=== PATIENT | female | born 1950 | race Asian ===

== ENCOUNTER 2017-02-08 22:31 | Emergency (ER) | payer MEDICARE, OTHER ==
[~2017-02-08 22:31] MED LIST: ASPI325T4 PO; ATEN50TA PO; CIPR500T94 PO; HYDR-2666 PO; LISI10TA2 PO; METR500T4 PO; NEOM10DR10 OU; SIMV40TA3 PO; TRAM50TA PO
[2017-02-08 22:35] VITALS: BP 155/83
[2017-02-08] MEDS ORDERED: PRED50TA PO (22:54)
--- NOTE | 2017-02-08 23:04 | ED.ADGEN ---
Past History Past Medical History: GERD, High Cholesterol, Hypertension, Other Past Surgical History: Hysterectomy, Tonsillectomy Smoking: Non-smoker Alcohol Use: Rarely Drug Use: None Adult General HPI HPI Patient is a 66-year-old female presents emergency Department with hives. Patient got a pair of workout pants at [facility] earlier today. She wore the most the day and then developed a itchy diffuse rash tonight. She had no prehospital intervention. Review of Systems Review of Systems Constitutional: Denies fever or chills [] Eyes: Denies change in visual acuity, redness, or eye pain [] HENT: Denies nasal congestion or sore throat [] Respiratory: Denies cough or shortness of breath [] Cardiovascular: No additional information not addressed in HPI [] GI: Denies abdominal pain, nausea, vomiting, bloody stools or diarrhea [] : Denies dysuria or hematuria [] Musculoskeletal: Denies back pain or joint pain [] Integument: Denies rash or skin lesions [] Neurologic: Denies headache, focal weakness or sensory changes [] Endocrine: Denies polyuria or polydipsia [] Current Medications Current Medications Current Medications Medications (Trade) Dose Ordered Sig/Justin Start Time Stop Time Status Last Admin Dose Admin Dexamethasone Sodium Phosphate (Decadron) 8 mg 1X ONCE 02/08/17 23:15 02/08/17 23:16 DC 02/08/17 23:04 8 MG Diphenhydramine HCl (Benadryl) 50 mg 1X ONCE 02/08/17 23:15 02/08/17 23:16 DC 02/08/17 23:03 50 MG Epinephrine HCl 0.3 mg 1X ONCE 02/08/17 23:15 02/08/17 23:16 DC 02/08/17 23:04 0.3 MG Allergies Allergies Allergies Coded Allergies Type Severity Reaction Last Updated Verified No Known Drug Allergies 06/18/14 No Physical Exam Physical Exam Constitutional: Well developed, well nourished, no acute distress, non-toxic appearance. [] HENT: Normocephalic, atraumatic, bilateral external ears normal, oropharynx moist, no oral exudates, nose normal. [] Eyes: PERRLA, EOMI, conjunctiva normal, no discharge. [] Neck: Normal range of motion, no tenderness, supple, no stridor. [] Cardiovascular:Heart rate regular rhythm, no murmur [] Lungs & Thorax: Bilateral breath sounds clear to auscultation [] Abdomen: Bowel sounds normal, soft, no tenderness, no masses, no pulsatile masses. [] Skin: Warm, dry, diffuse urticaria from the umbilicus down Extremities: No tenderness, no cyanosis, no clubbing, ROM intact, no edema. [] Neurologic: Alert and oriented X 3, normal motor function, normal sensory function, no focal deficits noted. [] Psychologic: Affect normal, judgement normal, mood normal. [] EKG EKG [] Radiology/Procedures Radiology/Procedures [] Course & Med Decision Making Course & Med Decision Making Pertinent Labs and Imaging studies reviewed. (See chart for details) Decadron and Benadryl here in emergency department. Rx for prednisone. [] Final Impression Final Impression urticaria[] Problems: Dragon Disclaimer Dragon Disclaimer This electronic medical record was generated, in whole or in part, using a voice recognition dictation system. RONDA MELGOZA MD Feb 08, 2017 23:04
[2017-02-08] MEDS ORDERED: DEXAMETHASONE SOD PHOS 4 MG/ML VIAL IM ONE (23:15)
[2017-02-08] MEDS ORDERED: DIPHENHYDRAMINE HCL 25 MG CAPSULE PO ONE (23:15)
[2017-02-08] MEDS ORDERED: EPINEPHRINE 1 MG/ML IM ONE (23:15)
[2017-02-09] MEDS ORDERED: RANI150T2 PO (22:55)
[2017-02-09] MEDS ORDERED: HYDR25CA PO (22:55)
== END 2017-02-08 23:15 | disposition home or self-care (01) ==
LOC: ER 22:33
DX: L50.9 Urticaria, unspecified (principal); E78.00 Pure hypercholesterolemia, unspecified; I10 Essential (primary) hypertension; K21.9 Gastro-esophageal reflux disease without esophagitis
CPT/HCPCS: 96372; 99284; J0171; J1100; Q0163

== ENCOUNTER 2017-02-09 22:09 | Emergency (ER) | payer MEDICARE, OTHER ==
[~2017-02-09 22:09] MED LIST changes: +PRED50TA PO
--- NOTE | 2017-02-09 22:44 | PHYS DOC ---
Past History Past Medical History: High Cholesterol, Hypertension Past Surgical History: Other Smoking: Non-smoker Alcohol Use: None Drug Use: None Adult General Chief Complaint Chief Complaint: SKIN RASH/ABSCESS HPI HPI 66-year-old female returns to the emergency department tonight with worsening hives. She was seen in our emergency department last night given Benadryl steroids and epinephrine and had significant improvement. She took prednisone 50 mg today but did not take any antihistamines and the hives returned. She states the itching and burning is too much to take and she needed relief so she returned to the emergency department tonight. [] Review of Systems Review of Systems Constitutional: Denies fever or chills [] Eyes: Denies change in visual acuity, redness, or eye pain [] HENT: Denies nasal congestion or sore throat [] Respiratory: Denies cough or shortness of breath [] Cardiovascular: No additional information not addressed in HPI [] GI: Denies abdominal pain, nausea, vomiting, bloody stools or diarrhea [] : Denies dysuria or hematuria [] Musculoskeletal: Denies back pain or joint pain [] Integument: Per history of present illness [] Neurologic: Denies headache, focal weakness or sensory changes [] Endocrine: Denies polyuria or polydipsia [] Current Medications Current Medications Current Medications Medications (Trade) Dose Ordered Sig/Justin Start Time Stop Time Status Last Admin Dose Admin Alprazolam (Xanax) 0.5 mg 1X ONCE 02/09/17 22:45 02/09/17 22:46 UNV Diphenhydramine HCl (Benadryl) 25 mg 1X ONCE 02/09/17 22:45 02/09/17 22:46 UNV Famotidine (Pepcid) 40 mg 1X ONCE 02/09/17 22:45 02/09/17 22:46 UNV Methylprednisolone Sodium Succinate (Solu-Medrol 125mg Vial) 125 mg 1X ONCE 02/09/17 22:45 02/09/17 22:46 UNV Sodium Chloride (Iv Sodium Chloride 0.9% 1,000ml) 1,000 ml @ 1,000 mls/hr 1X ONCE 02/09/17 22:45 02/09/17 23:44 UNV Allergies Allergies Allergies Coded Allergies Type Severity Reaction Last Updated Verified No Known Drug Allergies 06/18/14 No Physical Exam Physical Exam Constitutional: Well developed, well nourished, no acute distress, non-toxic appearance. [] HENT: Normocephalic, atraumatic, bilateral external ears normal, oropharynx moist, no oral exudates, nose normal. [] Eyes: PERRLA, EOMI, conjunctiva normal, no discharge. [] Neck: Normal range of motion, no tenderness, supple, no stridor. [] Cardiovascular:Heart rate regular rhythm, no murmur [] Lungs & Thorax: Bilateral breath sounds clear to auscultation [] Abdomen: Bowel sounds normal, soft, no tenderness, no masses, no pulsatile masses. [] Skin: Scattered hives most pronounced on her upper chest shoulders and right cheek.. [] Back: No tenderness, no CVA tenderness. [] Extremities: No tenderness, no cyanosis, no clubbing, ROM intact, no edema. [] Neurologic: Alert and oriented X 3, normal motor function, normal sensory function, no focal deficits noted. [] Psychologic: Affect normal, judgement normal, mood normal. [] Current Patient Data Vital Signs Vital Signs Date Time Temp Pulse Resp B/P Pulse Ox O2 Delivery O2 Flow Rate FiO2 02/09/17 22:22 97.6 76 22 98 Room Air EKG EKG [] Radiology/Procedures Radiology/Procedures [] Course & Med Decision Making Course & Med Decision Making Pertinent Labs and Imaging studies reviewed. (See chart for details) [ED course: Evaluation reveals a 66-year-old female with hives. She was given IV fluids, Solu-Medrol, Benadryl 25 mg and Pepcid 20 mg with near complete resolution of her symptoms. I will prescribe Vistaril and Zantac for her to take at home along with the previously prescribed prednisone. Patient is stable for discharge home] Dragon Disclaimer Dragon Disclaimer This chart was dictated in whole or in part using Voice Recognition software in a busy, high-work load, and often noisy Emergency Department environment. It may contain unintended and wholly unrecognized errors or omissions. Departure Departure: Impression: Primary Impression: Hives Disposition: HOME, SELF-CARE Condition: IMPROVED Referrals: JOEL CAGE MD (PCP) Patient Instructions: Hives Additional Instructions: Take Vistaril every 6-8 hours as needed for hives. I've also prescribed Zantac for you to take every 12 hours for hives. I also recommend that she continue the prednisone which were prescribed yesterday. Return to the emergency department with any new or concerning symptoms Scripts Hydroxyzine Pamoate (Vistaril)25 Mg Capsule1 Cap PO Q8HRS PRN hives #30 CAP Ref 2 Prov:HILARIO PORTER DO 02/09/17 Ranitidine Hcl 150 Mg Tablet1 Tab PO BID hives #30 TAB Ref 3 Prov:HILARIO PORTER DO 02/09/17 HILARIO PORTER DO Feb 09, 2017 22:44
[2017-02-09] MEDS ORDERED: ALPRAZOLAM 0.25 MG TABLET ONE (22:45)
[2017-02-09] MEDS ORDERED: IV NORMAL SALINE 1,000ML 1,000 ML IV ONE (22:45)
[2017-02-09] MEDS ORDERED: HYDR25CA PO (22:55)
[2017-02-09] MEDS ORDERED: RANI150T2 PO (22:55)
[2017-02-09] MEDS ORDERED: methylPREDNISolone SOD SUCC PF 125 MG/2 ML VIAL. IV ONE (23:00)
[2017-02-09] MEDS ORDERED: DIPHENHYDRAMINE 50 MG/ML VIAL IVP ONE (23:00)
[2017-02-09] MEDS ORDERED: FAMOTIDINE 20 MG/2 ML VIAL IVP ONE (23:00)
[2017-02-09] MEDS ORDERED: ALPRAZOLAM 0.25 MG TABLET PO ONE (23:00)
[2017-02-09 23:40] VITALS: BP 144/83
== END 2017-02-09 23:40 | disposition home or self-care (01) ==
LOC: ER 22:09
DX: L50.9 Urticaria, unspecified (principal); I10 Essential (primary) hypertension; E78.00 Pure hypercholesterolemia, unspecified
CPT/HCPCS: 96361; 96374; 96375; 99284; J1200; J2930; S0028; J7030

== ENCOUNTER → 2017-04-12 | Outpatient (CLI) | payer MEDICARE, OTHER ==
[~2017-04-12] MED LIST changes: -ASPI325T4 PO; +ASPI325T8 PO; -HYDR-2666 PO; +HYDR-2758 PO; +HYDR25CA PO; -METR500T4 PO; +METR500T8 PO; +RANI150T2 PO
--- NOTE | 2017-04-12 14:07 | RAD ---
Indication chronic pelvic pain. Initially transabdominal scans were obtained. Initial transabdominal scans were supplemented with transvaginal scans. The transvaginal scans however suboptimal. The patient is postmenopausal. The uterus measures approximately 6.3 x 3.7 x 2.3 cm. Endometrial thickness is approximately 5 mm. The right ovary is not seen and reportedly is surgically absent. The left ovary appears unremarkable. IMPRESSION: No significant finding seen involving the uterus or left ovary.
== END | disposition home or self-care (01) ==
LOC: US 12:37
PROVIDERS: ATTEND Family Medicine
DX: R10.2 Pelvic and perineal pain (principal)
CPT/HCPCS: 76830; 76856

== ENCOUNTER 2017-11-23 06:56 | Emergency (ER) | payer MEDICARE, OTHER ==
[2017-11-23] MEDS ORDERED: IV NORMAL SALINE 1,000ML 1,000 ML IV SCH (07:37)
--- NOTE | 2017-11-23 07:46 | PHYS DOC ---
Past History Past Medical History: High Cholesterol, Hypertension Past Surgical History: Other Smoking: Non-smoker Alcohol Use: None Drug Use: None Adult General Chief Complaint Chief Complaint: COUGH HPI HPI 67-year-old female patient complaining of nasal congestion and cough for the last 5 days of gradually getting force. Patient states she has dry cough and sometimes she has productive cough with clear sputum associated with chest soreness and shortness of breath during episodes of cough. Patient complaining of mild nausea and subjective fever since last night without vomiting and diarrhea and urinary symptom. Patient did not have sick contact. Patient had influenza vaccination. Review of Systems Review of Systems Constitutional: Reports fever and chills [] Eyes: Denies change in visual acuity, redness, or eye pain [] HENT: Reports nasal congestion, sore throat [] Respiratory: Denies cough or shortness of breath [] Cardiovascular: No additional information not addressed in HPI [] GI: Denies abdominal pain, nausea, vomiting, bloody stools or diarrhea [] : Denies dysuria or hematuria [] Musculoskeletal: Denies back pain or joint pain, reports myalgia[] Integument: Denies rash or skin lesions [] Neurologic: Denies headache, focal weakness or sensory changes [] Endocrine: Denies polyuria or polydipsia [] All other systems were reviewed and found to be within normal limits, except as documented in this note. Allergies Allergies Allergies Coded Allergies Type Severity Reaction Last Updated Verified No Known Drug Allergies 06/18/14 No Physical Exam Physical Exam Constitutional: Well developed, well nourished, moderate distress, non-toxic appearance. [] HENT: Normocephalic, atraumatic, bilateral external ears normal, oropharynx moist, tonsillar erythema without no exudates, nasal congestion and erythema Eyes: PERRLA, EOMI, conjunctiva normal, no discharge. [] Neck: Normal range of motion, no tenderness, supple, no stridor. [] Cardiovascular:Heart rate regular rhythm, no murmur [] Lungs & Thorax: Bilateral breath sounds clear to auscultation [] Abdomen: Bowel sounds normal, soft, no tenderness, no masses, no pulsatile masses. [] Skin: Warm, dry, no erythema, no rash. [] Back: No tenderness, no CVA tenderness. [] Extremities: No tenderness, no cyanosis, no clubbing, ROM intact, no edema. [] Neurologic: Alert and oriented X 3, normal motor function, normal sensory function, no focal deficits noted. [] Psychologic: Affect normal, judgement normal, mood normal. [] Current Patient Data Vital Signs Vital Signs Date Time Temp Pulse Resp B/P (MAP) Pulse Ox O2 Delivery O2 Flow Rate FiO2 11/23/17 07:23 98.7 95 22 93 Room Air EKG EKG [] Radiology/Procedures Radiology/Procedures [] Course & Med Decision Making Course & Med Decision Making Pertinent Labs and Imaging studies reviewed. (See chart for details) Evaluation of patient in ER showed 67-year-old male patient with complaining of nasal congestion and cough and shortness of breath for the last 5 days with negative labs and chest x-ray. Patient treated with IV fluid, Solu-Medrol, Toradol, Rocephin and DuoNeb and felt better. Plan discharge patient home with diagnosis of upper respiratory infection and prescription of Zithromax and Tussionex. [] Dragon Disclaimer Dragon Disclaimer This electronic medical record was generated, in whole or in part, using a voice recognition dictation system. Departure Departure: Impression: Primary Impression: Upper respiratory infection Disposition: HOME, SELF-CARE (At 0900) Condition: IMPROVED Referrals: JOAN PICHARDO MD (PCP) Patient Instructions: Upper Respiratory Infection, Adult Additional Instructions: Take plenty of liquids Follow-up with your primary care physician in 3-5 days Return to ER if not getting better Scripts Hydrocodone/Chlorphen P-Stirex (Tussionex Pennkinetic Susp) 115 Ml Nasreen.er.12h 5 ML PO BID, #120 ML Prov: LALY GARCIA MD 11/23/17 Azithromycin (ZITHROMAX) 250 Mg Tablet 1 PKG PO UD, #6 TAB Prov: LALY GARCIA MD 11/23/17 LALY GARCIA MD Nov 23, 2017 07:46
[2017-11-23] MEDS ORDERED: IPRATRPIUM/ALBUTEROL 0.5/2.5MG 3 ML NEBU. NEB ONE (08:00)
[2017-11-23] MEDS ORDERED: methylPREDNISolone SOD SUCC PF 125 MG/2 ML VIAL. IV ONE (08:00)
[2017-11-23] MEDS ORDERED: KETOROLAC 30 MG/ML VIAL. IV ONE (08:00)
[2017-11-23 08:09] LABS: BASO # 0.1 x10^3/uL (0.0-0.2); BASO % 1 % (0-3); EOS # 0.1 x10^3/uL (0.0-0.7); EOS % 1 % (0-3); HEMOGLOBIN 13.6 g/dL (12.0-15.5); LYMPH # 1.2 x10^3/uL (1.0-4.8); LYMPH % 12 % (24-48); MEAN CORPUSCULAR HEMOGLOBIN 33 pg (25-35); MEAN CORPUSCULAR HGB CONC 35 g/dL (31-37); MEAN CORPUSCULAR VOLUME 94 fL (79-100); MONO # 0.8 x10^3/uL (0.0-1.1); MONO % 8 % (0-9); NEUT # 8.2 x10^3uL (1.8-7.7); NEUT % 79 % (31-73); PLATELET COUNT 222 x10^3/uL (140-400); RED BLOOD COUNT 4.15 x10^6/uL (3.50-5.40); RED CELL DISTRIBUTION WIDTH 13.1 % (11.5-14.5); WHITE BLOOD COUNT 10.4 x10^3/uL (4.0-11.0)
--- NOTE | 2017-11-23 08:15 | RAD ---
Chest, 2 views, 11/23/2017: History: Cough and congestion Comparison is made to a study from 03/01/2016. The heart size and pulmonary vascularity are normal. There is mild tortuosity of the thoracic aorta. No pulmonary infiltrates are seen. There is no evidence of pleural fluid. IMPRESSION: No acute cardiopulmonary abnormality is detected.
[2017-11-23 08:22] LABS: ALBUMIN 3.5 g/dL (3.4-5.0); ALBUMIN/GLOBULIN RATIO 0.8 (1.0-1.7); CALCIUM 8.6 mg/dL (8.5-10.1); CREATININE 0.8 mg/dL (0.6-1.0); TOTAL PROTEIN 7.7 g/dL (6.4-8.2)
[2017-11-23 08:23] LABS: GFR 71.3; POTASSIUM 3.7 mmol/L (3.5-5.1); TOTAL BILIRUBIN 0.8 mg/dL (0.2-1.0)
[2017-11-23 08:23] LABS: INFLUENZA A PATIENT NEGATIVE (NEGATIVE); INFLUENZA B PATIENT NEGATIVE (NEGATIVE)
[2017-11-23] MEDS ORDERED: cefTRIAXone IV Push 1 GM VIAL. IVP SCH (09:00)
[2017-11-23] MEDS ORDERED: AZIT250T PO (09:03)
[2017-11-23] MEDS ORDERED: HYDR115S2 PO (09:03)
[2017-11-23 12:36] VITALS: BP 138/84
== END 2017-11-23 09:50 | disposition home or self-care (01) ==
LOC: ER 06:56
DX: J06.9 Acute upper respiratory infection, unspecified (principal); I10 Essential (primary) hypertension; E78.00 Pure hypercholesterolemia, unspecified
CPT/HCPCS: 36415; 71046; 80053; 83605; 85025; 87804; 94640; 96361; 96374; 96375; 99285; J0696; J1885; J2930; J7620; J7030

== ENCOUNTER 2018-05-28 20:05 | Inpatient (IN) | payer MEDICARE, OTHER ==
[~2018-05-28] VITALS: Ht 152.4 cm; Wt 57.7 kg
[~2018-05-28 20:05] MED LIST changes: +AZIT250T PO; +HYDR115S2 PO
--- NOTE | 2018-05-28 20:20 | ED.ADGEN ---
Past History Past Medical History: Angina, High Cholesterol, Hypertension, Other Past Surgical History: Other Smoking: Non-smoker Alcohol Use: None Drug Use: None Adult General Chief Complaint Chief Complaint ".. I always have this heavy ness in my chest after eating... and been sweating..." ".. I cant seem to catch my breath..." ".. I just feel uncomfortable.. I was to see my Dr. Segura tomorrow..." HPI HPI Patient is a 67 year old female who presents with above hx and complaints of dyspnea and chest pressure. Pt. had symptoms for past 3 yrs interment. More constant today, no relief. Constant heaviness in chest today. Pt. complaints of dyspnea and fatigue after eating. Chest heavy after eating. Pt. reports normal stools. H2 kevin have not helped with symptoms. P.t denies travel or ill contacts. No hx of trauma. No changes in meds. Pt. has hx of TIA's, and was started on ASA years ago. Pt. has hx HTN, Eleve. Cholesterol. Pt. follows with Dr. Segura. Review of Systems Review of Systems Constitutional: Denies fever or chills [] Eyes: Denies change in visual acuity, redness, or eye pain [] HENT: Denies nasal congestion or sore throat [] Respiratory: Complaints of shortness of breath [] Cardiovascular: No additional information not addressed in HPI [] GI: Denies abdominal pain, nausea, vomiting, bloody stools or diarrhea [] : Denies dysuria or hematuria [] Musculoskeletal: Denies back pain or joint pain [] Integument: Denies rash or skin lesions [] Neurologic: Denies headache, focal weakness or sensory changes [] Endocrine: Denies polyuria or polydipsia [] All other systems were reviewed and found to be within normal limits, except as documented in this note. Family History Family History Noncontributory Current Medications Current Medications See nursing for home medications Allergies Allergies Allergies Coded Allergies Type Severity Reaction Last Updated Verified No Known Drug Allergies 06/18/14 No Physical Exam Physical Exam Constitutional: Moderate distress, non-toxic appearance. [] HENT: Normocephalic, atraumatic, bilateral external ears normal, oropharynx moist, no oral exudates, nose normal. [] Eyes: PERRLA, EOMI, conjunctiva normal, no discharge. [] Neck: Normal range of motion, no tenderness, supple, no stridor. [] Cardiovascular:Heart rate regular rhythm, no murmur []PMI to the left Lungs & Thorax: Bilateral breath sounds equal at apex on auscultation [] Abdomen: Bowel sounds normal, soft, no tenderness, no masses, no pulsatile masses. [Distended Skin: Warm, dry, no erythema, no rash. [] Back: No tenderness, no CVA tenderness. [] Extremities: No tenderness, no cyanosis, no clubbing, ROM intact, no edema. No cording appreciated in legs . Neurologic: Alert and oriented X 3, normal motor function, normal sensory function, no focal deficits noted. [] Psychologic: Affect anxious, judgement normal, mood normal. [] Current Patient Data Vital Signs Vital Signs Date Time Temp Pulse Resp B/P (MAP) Pulse Ox O2 Delivery O2 Flow Rate FiO2 05/28/18 20:20 97.7 78 20 99 Room Air Lab Results Laboratory Tests Test 05/28/18 20:21 White Blood Count 8.3 x10^3/uL (4.0-11.0) Red Blood Count 4.11 x10^6/uL (3.50-5.40) Hemoglobin 13.4 g/dL (12.0-15.5) Hematocrit 38.8 % (36.0-47.0) Mean Corpuscular Volume 95 fL (79-100) Mean Corpuscular Hemoglobin 33 pg (25-35) Mean Corpuscular Hemoglobin Concent 35 g/dL (31-37) Red Cell Distribution Width 13.1 % (11.5-14.5) Platelet Count 322 x10^3/uL (140-400) Neutrophils (%) (Auto) 48 % (31-73) Lymphocytes (%) (Auto) 42 % (24-48) Monocytes (%) (Auto) 6 % (0-9) Eosinophils (%) (Auto) 2 % (0-3) Basophils (%) (Auto) 1 % (0-3) Neutrophils # (Auto) 4.0 x10^3uL (1.8-7.7) Lymphocytes # (Auto) 3.5 x10^3/uL (1.0-4.8) Monocytes # (Auto) 0.5 x10^3/uL (0.0-1.1) Eosinophils # (Auto) 0.1 x10^3/uL (0.0-0.7) Basophils # (Auto) 0.1 x10^3/uL (0.0-0.2) Sodium Level 141 mmol/L (136-145) Potassium Level 4.5 mmol/L (3.5-5.1) Chloride Level 105 mmol/L (98-107) Carbon Dioxide Level 28 mmol/L (21-32) Anion Gap 8 (6-14) Blood Urea Nitrogen 19 mg/dL (7-20) Creatinine 0.6 mg/dL (0.6-1.0) Estimated GFR (Cockcroft-Gault) 99.4 Glucose Level 111 mg/dL (70-99) H Calcium Level 9.1 mg/dL (8.5-10.1) Magnesium Level 2.2 mg/dL (1.8-2.4) Total Bilirubin 0.8 mg/dL (0.2-1.0) Direct Bilirubin 0.1 mg/dL (0.0-0.2) Aspartate Amino Transferase (AST) 32 U/L (15-37) Alanine Aminotransferase (ALT) 29 U/L (14-59) Alkaline Phosphatase 54 U/L (46-116) Creatine Kinase 105 U/L (26-192) Creatine Kinase MB (Mass) 0.9 ng/mL (0.0-3.6) Creatine Kinase MB Relative Index 0.9 % (0-4) Troponin I Quantitative < 0.017 ng/mL (0-0.055) PP-Pvp-P-Type Natriuretic Peptide 31 pg/mL (0-124) Total Protein 7.7 g/dL (6.4-8.2) Albumin 3.8 g/dL (3.4-5.0) Lipase 254 U/L (73-393) EKG EKG Interpretation EKG shows a sinus rhythm at 64 bpm. There is mild leftward axis. There are no findings acute STEMI with contralateral changes. A Q signal and lead III[] Radiology/Procedures Radiology/Procedures My interpretation of chest x-ray shows no acute cardiopulmonary findings. Does have increased stool in colon. No free air under the diaphragm.[] Course & Med Decision Making Course & Med Decision Making Pertinent Labs and Imaging studies reviewed. (See chart for details) Discussed presentation, testing and tx. plan Abdifatah. Will admit for further eval and tx. Cardiology consult. [] Final Impression Final Impression 1. Chest Pain[] 2. HTN 3. Hx. Elevated Cholesterol 4. Constipation Dragon Disclaimer Dragon Disclaimer This electronic medical record was generated, in whole or in part, using a voice recognition dictation system. ADAMA ARRIOLA MD May 28, 2018 20:20
[2018-05-28 20:37] LABS: BASO # 0.1 x10^3/uL (0.0-0.2); BASO % 1 % (0-3); EOS # 0.1 x10^3/uL (0.0-0.7); EOS % 2 % (0-3); HEMATOCRIT 38.8 % (36.0-47.0); HEMOGLOBIN 13.4 g/dL (12.0-15.5); LYMPH # 3.5 x10^3/uL (1.0-4.8); LYMPH % 42 % (24-48); MEAN CORPUSCULAR HEMOGLOBIN 33 pg (25-35); MEAN CORPUSCULAR HGB CONC 35 g/dL (31-37); MEAN CORPUSCULAR VOLUME 95 fL (79-100); MONO # 0.5 x10^3/uL (0.0-1.1); MONO % 6 % (0-9); NEUT % 48 % (31-73); PLATELET COUNT 322 x10^3/uL (140-400); RED BLOOD COUNT 4.11 x10^6/uL (3.50-5.40); RED CELL DISTRIBUTION WIDTH 13.1 % (11.5-14.5); WHITE BLOOD COUNT 8.3 x10^3/uL (4.0-11.0)
[2018-05-28] MEDS: IV RINGERS SOLUTION,LACTATED 1,000 ML IV SCH ×2 (20:50→23:47)
[2018-05-28 21:00] LABS: ALBUMIN 3.8 g/dL (3.4-5.0); CALCIUM 9.1 mg/dL (8.5-10.1); CREATININE 0.6 mg/dL (0.6-1.0); DIRECT BILIRUBIN 0.1 mg/dL (0.0-0.2); GFR 99.4; MAGNESIUM 2.2 mg/dL (1.8-2.4); POTASSIUM 4.5 mmol/L (3.5-5.1); TOTAL BILIRUBIN 0.8 mg/dL (0.2-1.0); TOTAL PROTEIN 7.7 g/dL (6.4-8.2)
[2018-05-28] MEDS ORDERED: MAGNESIUM HYDROXIDE 2,400 MG/30 ML ORAL.SUSP. PO SCH (21:00)
[2018-05-28] MEDS ORDERED: ENOXAPARIN ** NOTE DOSE ** SYRINGE SQ ONE (21:00)
[2018-05-28] MEDS ORDERED: NITROGLYCERIN OINT 1 GM PACKET. TP ONE (21:00)
[2018-05-28 22:08] LABS: BARBITURATES NEG (NEG); BENZODIAZEPINES NEG (NEG); BILIRUBIN,URINE NEG (NEG); CANNABINOIDS NEG (NEG); CLARITY,URINE CLEAR; COCAINE NEG (NEG); COLOR,URINE STRAW; GLUCOSE,URINE NEG (NEG); METHADONE NEG (NEG); NITRITE,URINE NEG (NEG); OPIATES NEG (NEG); PHENCYCLIDINE NEG (NEG); RBC,URINE 0 /HPF (0-2); UROBILINOGEN,URINE 0.2 mg/dL (0.2 mg/dL)
[2018-05-28 22:09] LABS: BACTERIA,URINE FEW /HPF (0-FEW); SQUAMOUS EPITHELIAL CELL,UR FEW /LPF
[2018-05-28 22:11] LABS: AMPHETAMINE/METHAMPHETAMINE NEG (NEG)
--- NOTE | 2018-05-28 22:35 | RAD ---
CHEST PA LATERAL History: Dizziness, shortness of breath, chest pain Comparison: November 23, 2017 Findings: 2 views of the chest are submitted. There is no infiltrate, pneumothorax, or effusion. Cardiac silhouette is stable, within normal limits. There is again tortuous, possibly ectatic thoracic aorta. Impression: 1. There is no radiographic evidence of acute cardiopulmonary disease. Electronically signed by: Flex Regalado MD (05/28/2018 10:32 PM) [id number]
[2018-05-28 22:48] VITALS: BP 141/71
--- NOTE | 2018-05-28 23:33 | EKG ---
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
[2018-05-29 06:00] VITALS: BP 115/63
[2018-05-29 06:22] LABS: BASO % 1 % (0-3); EOS # 0.2 x10^3/uL (0.0-0.7); EOS % 2 % (0-3); HEMATOCRIT 35.2 % (36.0-47.0); HEMOGLOBIN 12.2 g/dL (12.0-15.5); LYMPH # 3.4 x10^3/uL (1.0-4.8); LYMPH % 46 % (24-48); MEAN CORPUSCULAR HEMOGLOBIN 33 pg (25-35); MEAN CORPUSCULAR HGB CONC 35 g/dL (31-37); MEAN CORPUSCULAR VOLUME 95 fL (79-100); MONO # 0.5 x10^3/uL (0.0-1.1); MONO % 7 % (0-9); NEUT # 3.2 x10^3uL (1.8-7.7); NEUT % 44 % (31-73); PLATELET COUNT 277 x10^3/uL (140-400); RED BLOOD COUNT 3.71 x10^6/uL (3.50-5.40); RED CELL DISTRIBUTION WIDTH 12.6 % (11.5-14.5); WHITE BLOOD COUNT 7.4 x10^3/uL (4.0-11.0)
[2018-05-29 06:30] LABS: CALCIUM 8.5 mg/dL (8.5-10.1); CREATININE 0.6 mg/dL (0.6-1.0); GFR 99.4; POTASSIUM 3.8 mmol/L (3.5-5.1)
[2018-05-29] MEDS ORDERED: LISINOPRIL 10 MG TABLET PO SCH (09:00)
[2018-05-29] MEDS ORDERED: FAMOTIDINE 20 MG TABLET PO SCH (09:00)
[2018-05-29] MEDS ORDERED: ATENOLOL 50 MG TABLET PO SCH (09:00)
[2018-05-29] MEDS ORDERED: ASPIRIN 81 MG TAB.CHEW PO SCH (09:00)
[2018-05-29] MEDS ORDERED: ENOXAPARIN ** NOTE DOSE ** SYRINGE SQ SCH (09:00)
--- NOTE | 2018-05-29 09:10 | PDOC2 ---
CONSULT Date of Admission DATE: 05/29/18 TIME: 09:07 Reason for Consult: cp Problem List Problems Medical Problems: (1) Constipation Status: Acute (2) Dyspnea Status: Acute (3) History of hypertension Status: Acute History of Present Illness Ms Madrigal is a 67 year old female who presents with complaints of chest pressure. She reports constant pressure in her epigastric area radiating to midsternal area that is non exertional. She reports some mild dyspnea that is also constant. She complains of increased symptoms after eating. She reports that yesterday it was significantly worse than normal so she presented to ED for evaluation. She says that nothing seems to improve the discomfort. She does walk treadmill 3 days per week at the gym and denies any increase of symptoms with exercise. She reports that she actually feels great after exercise. She denies any congestive symptoms, edema. She reports palpitations occasionally without associated symptoms. She reports 3 episodes of syncope, last being 1.5 yrs ago, twice while on the toilet and 1 episode associated with leg pain while walking down the stairs. 2 episodes resulted in injury, 1 with fall down stairs and one with fall from toilet resulting in cervical fracture. Past Medical History echo 09/28/16 The left ventricular systolic function is normal and the ejection fraction is within normal range. The Ejection Fraction is 55-60%. There is normal LV segmental wall motion. No significant valvular disease. MPI 03/03/16 Conclusion 1. Regadenoson cardioisotope stress test did not show any evidence of ischemia or infarct. 2. Normal left ventricular systolic function with ejection fraction calculated at 70%. 3. Low risk for cardiac events. Cardiovascular: HTN, syncope, hyperipidemia GI: GERD, Peptic Ulcer disease Musculoskeletal: Other (c2 fracture) Endocrine: Hypothyroidism Past Surgical History: Other (right oophorectomy , breast implants) Family History hypertension, coronary artery disease Social History non smoker, no significant ETOH, no illicit drugs Current Medications Current Medications Lactated Ringer's 1,000 ml @ 100 mls/hr Q10H IV Last administered on 05/28/18at 23:47; Start 05/28/18 at 21:00; Stop 05/29/18 at 06:59; Status DC Enoxaparin Sodium (Lovenox 60mg Syringe) 50 mg 1X ONCE SQ Last administered on 7/8/18at 20:50; Start 05/28/18 at 21:00; Stop 05/28/18 at 21:01; Status DC Nitroglycerin (Nitro-Bid Oint) 0.5 inch 1X ONCE TP Last administered on at 20:51; Start 05/28/18 at 21:00; Stop 05/28/18 at 21:01; Status DC Aspirin (Children'S Aspirin) 81 mg DAILY PO ; Start 05/29/18 at 09:00 Enoxaparin Sodium (Lovenox 60mg Syringe) 50 mg BID SQ ; Start 05/29/18 at 09:00 Nitroglycerin (Nitro-Bid Oint) 0.5 inch TID TP ; Start 05/29/18 at 09:00 Magnesium Hydroxide (Milk Of Magnesia) 2,400 mg HS PO Last administered on at 23:47; Start 05/28/18 at 21:00 Famotidine (Pepcid) 20 mg DAILY PO ; Start 05/29/18 at 09:00 Active Scripts Active Tussionex Pennkinetic Susp (Hydrocodone/Chlorphen P-Stirex) 115 Ml Nasreen.er.12h 5 Ml PO BID Zithromax (Azithromycin) 250 Mg Tablet 1 Pkg PO UD Vistaril (Hydroxyzine Pamoate) 25 Mg Capsule 1 Cap PO Q8HRS PRN Ranitidine Hcl 150 Mg Tablet 1 Tab PO BID Prednisone 50 Mg Tablet 1 Tab PO DAILY Tramadol Hcl (Tramadol HCl) 50 Mg Tablet 50 Mg PO Q4-6HRS PRN Reported Lisinopril 10 Mg Tablet 10 Mg PO DAILY LAST DOSE GIVEN: DATE: NEXT DOSE DUE: DATE: TOMORR AM Aspirin 325 Mg Tablet 325 Mg PO DAILY LAST DOSE GIVEN: DATE: AM NEXT DOSE DUE: DATE: Tomorr morning TIME: Simvastatin 40 Mg Tablet 40 Mg PO HS NEXT DOSE DUE: DATE: TON PM DATE: TIME: Atenolol 50 Mg Tablet 50 Mg PO DAILY LAST DOSE GIVEN: DATE: NEXT DOSE: DATE: Tomorrow AFTER STRESS TEST HOLD IN MORNING!!! Allergies: Coded Allergies: No Known Drug Allergies (Unverified , 06/18/14) Review of System as per HPI or negative General: Alert, Oriented X3, Cooperative, No acute distress HEENT: Atraumatic, EOMI, Mucous membr. moist/pink, Other (no carotid bruits) Lungs: Other (mildly decreased in bases) Heart: Regular rate, Normal S1, Normal S2, Other (no significant murmurs, clicks or rubs) Abdomen: Normal bowel sounds, Soft, No tenderness Extremities: No cyanosis, No edema, Normal pulses Neuro: Normal speech, Strength at 5/5 X4 ext, Cranial nerves 3-12 NL Psych/Mental Status: Mental status NL, Mood NL VITALS Vital Signs Date Time Temp Pulse Resp B/P (MAP) Pulse Ox O2 Delivery O2 Flow Rate FiO2 05/29/18 06:00 97.9 73 18 115/63 (80) 97 Room Air Labs Laboratory Tests Test 05/28/18 20:21 05/28/18 21:00 05/28/18 21:47 05/29/18 06:07 White Blood Count 8.3 x10^3/uL (4.0-11.0) 7.4 x10^3/uL (4.0-11.0) Red Blood Count 4.11 x10^6/uL (3.50-5.40) 3.71 x10^6/uL (3.50-5.40) Hemoglobin 13.4 g/dL (12.0-15.5) 12.2 g/dL (12.0-15.5) Hematocrit 38.8 % (36.0-47.0) 35.2 % (36.0-47.0) Mean Corpuscular Volume 95 fL (79-100) 95 fL (79-100) Mean Corpuscular Hemoglobin 33 pg (25-35) 33 pg (25-35) Mean Corpuscular Hemoglobin Concent 35 g/dL (31-37) 35 g/dL (31-37) Red Cell Distribution Width 13.1 % (11.5-14.5) 12.6 % (11.5-14.5) Platelet Count 322 x10^3/uL (140-400) 277 x10^3/uL (140-400) Neutrophils (%) (Auto) 48 % (31-73) 44 % (31-73) Lymphocytes (%) (Auto) 42 % (24-48) 46 % (24-48) Monocytes (%) (Auto) 6 % (0-9) 7 % (0-9) Eosinophils (%) (Auto) 2 % (0-3) 2 % (0-3) Basophils (%) (Auto) 1 % (0-3) 1 % (0-3) Neutrophils # (Auto) 4.0 x10^3uL (1.8-7.7) 3.2 x10^3uL (1.8-7.7) Lymphocytes # (Auto) 3.5 x10^3/uL (1.0-4.8) 3.4 x10^3/uL (1.0-4.8) Monocytes # (Auto) 0.5 x10^3/uL (0.0-1.1) 0.5 x10^3/uL (0.0-1.1) Eosinophils # (Auto) 0.1 x10^3/uL (0.0-0.7) 0.2 x10^3/uL (0.0-0.7) Basophils # (Auto) 0.1 x10^3/uL (0.0-0.2) 0.0 x10^3/uL (0.0-0.2) Sodium Level 141 mmol/L (136-145) 142 mmol/L (136-145) Potassium Level 4.5 mmol/L (3.5-5.1) 3.8 mmol/L (3.5-5.1) Chloride Level 105 mmol/L (98-107) 108 mmol/L (98-107) Carbon Dioxide Level 28 mmol/L (21-32) 28 mmol/L (21-32) Anion Gap 8 (6-14) 6 (6-14) Blood Urea Nitrogen 19 mg/dL (7-20) 23 mg/dL (7-20) Creatinine 0.6 mg/dL (0.6-1.0) 0.6 mg/dL (0.6-1.0) Estimated GFR (Cockcroft-Gault) 99.4 99.4 Glucose Level 111 mg/dL (70-99) 119 mg/dL (70-99) Calcium Level 9.1 mg/dL (8.5-10.1) 8.5 mg/dL (8.5-10.1) Magnesium Level 2.2 mg/dL (1.8-2.4) Total Bilirubin 0.8 mg/dL (0.2-1.0) Direct Bilirubin 0.1 mg/dL (0.0-0.2) Aspartate Amino Transf (AST/SGOT) 32 U/L (15-37) Alanine Aminotransferase (ALT/SGPT) 29 U/L (14-59) Alkaline Phosphatase 54 U/L (46-116) Creatine Kinase 105 U/L (26-192) Creatine Kinase MB (Mass) 0.9 ng/mL (0.0-3.6) Creatine Kinase MB Relative Index 0.9 % (0-4) Troponin I Quantitative < 0.017 ng/mL (0-0.055) < 0.017 ng/mL (0-0.055) WP-Ufe-H-Type Natriuretic Peptide 31 pg/mL (0-124) Total Protein 7.7 g/dL (6.4-8.2) Albumin 3.8 g/dL (3.4-5.0) Lipase 254 U/L (73-393) Prothrombin Time 9.9 SEC (9.4-11.4) Prothromb Time International Ratio 1.0 (0.9-1.1) Activated Partial Thromboplast Time 23 SEC (23-33) D-Dimer (Connie) 0.20 mg/L (0.00-0.50) Urine Collection Type Unknown Urine Color Straw Urine Clarity Clear Urine pH 8.0 Urine Specific [place] 1.015 Urine Protein Neg (NEG-TRACE) Urine Glucose (UA) Neg mg/dL (NEG) Urine Ketones (Stick) Neg mg/dL (NEG) Urine Blood Neg (NEG) Urine Nitrite Neg (NEG) Urine Bilirubin Neg (NEG) Urine Urobilinogen Dipstick 0.2 mg/dL (0.2 mg/dL) Urine Leukocyte Esterase Trace (NEG) Urine RBC 0 /HPF (0-2) Urine WBC 1-4 /HPF (0-4) Urine Squamous Epithelial Cells Few /LPF Urine Bacteria Few /HPF (0-FEW) Urine Opiates Screen Neg (NEG) Urine Methadone Screen Neg (NEG) Urine Barbiturates Neg (NEG) Urine Phencyclidine Screen Neg (NEG) Urine Amphetamine/Methamphetamine Neg (NEG) Urine Benzodiazepines Screen Neg (NEG) Urine Cocaine Screen Neg (NEG) Urine Cannabinoids Screen Neg (NEG) Urine Ethyl Alcohol Neg (NEG) Images EKG - sinus rhythm, leftward axis, no acute abnormalities CXR - no acute abn Assessment/Plan 1. Chest pain, atypical - trop negative x 2, no acute EKG changes. Continue beta kevin, aspirin and statin. Continue serial enzymes. Check echo. Consider outpatient MPI. 2. Dyspnea - stable. No clinical signs or HF. Consider outpatient PFTs. As per IM. 3. prior syncope most consistent with vasovagal - last episode of syncope was > 1 year ago, however could consider outpatient event monitor as she does have episodes of palpitations. No significant arrhythmias on cardiac monitor since admission. 4. hypertension - controlled, continue on home medications. 5. hyperlipidemia - continue statin. check lipids. 6. C2 avulsion fracture - stable by xray in 2017 - per IM 7. hypothyroid - per IM 8. GERD - consider eval by GI, mgmt as per IM. JUDIE CARRILLO TELEPHONE SOLICITOR SUPERVISOR May 29, 2018 09:10
[2018-05-29] MEDS: NITROGLYCERIN OINT 1 GM PACKET. TP SCH ×2 (09:59→14:00)
[2018-05-29 11:01] VITALS: BP 142/70
--- NOTE | 2018-05-29 12:30 | HP ---
ADMIT DATE: 05/29/2018 HISTORY OF PRESENT ILLNESS: The patient is a 67-year-old [place] female patient, who came to the Emergency Room complaining of heaviness in her chest and abdomen after eating, has been sweating and she is unable to catch her breath, feels uncomfortable. All these symptoms started since 2016. At that time, she apparently was admitted to [facility] where she had cardiac catheterization, echocardiogram. She also underwent upper and lower GI endoscopy without any improvement. According to her , she has also abdominal ultrasound looking at her gallbladder and also gastric emptying study, although I do not have any actual reports to verify his statement where actually contacting Dr. Alba, her primary care physician to find out what distress when and where this and what tests were done before. She was actually evaluated in the Emergency Room. Her EKG was normal sinus rhythm at the heart rate of [address] segment elevation or depression. She did have her first set of cardiac enzyme was less than 0.017. The patient was admitted to do 2 more sets of cardiac enzyme and to rule out. Consult Cardiology team and rule out myocardial infarction. PAST MEDICAL HISTORY: Significant for hypertension, hyperlipidemia. PAST SURGICAL HISTORY: Significant for right oophorectomy, esophagogastroduodenoscopy, colonoscopy. ALLERGIES: She has no known drug allergies. MEDICATIONS: She is currently on following medications: She is on azithromycin 250 mg, simvastatin 40 mg at bedtime, atenolol 50 mg daily, lisinopril 10 mg daily, aspirin 325 mg once a day, tramadol 50 mg every 4-6 hours, hydroxyzine pamoate for Vistaril 25 mg every 8 hours as needed, hydrocodone chlorpheniramine for Tussionex 5 mL twice a day, ranitidine 150 mg twice a day, prednisone 50 mg daily. FAMILY HISTORY: Her father at the age of 52 because of myocardial infarction. Her mother at age of 49 because what seems to be non-Hodgkin lymphoma. Her two brothers have cancer. SOCIAL HISTORY: She is , retired from [employer]. She has 2 children from previous marriage. She does not smoke, drink alcohol or use any recreational drugs. REVIEW OF SYSTEMS: The patient denied any blurring of vision, cataract, glaucoma or macular degeneration. Denied any earache, tinnitus or sensorineural deafness. Denied any nosebleeds, stuffy nose or postnasal drip. Denied any sore throat, sore tongue, toothache, hoarseness of voice or difficulty swallowing. Denied any nausea, vomiting, diarrhea or constipation. Did complain of bloating and abdominal chest discomfort when eating and also diaphoresis. Denied any hematemesis, melena or hematochezia. Denied any dysuria, frequency or hematuria. Did complain of chest heaviness in her chest. Denied any shortness of breath, orthopnea or paroxysmal nocturnal dyspnea. Denied any cough, phlegm or hemoptysis. Denied any chills, rigors or fever. PHYSICAL EXAMINATION: GENERAL: On arrival to the Emergency Room, she looked well and was clearly in no apparent respiratory distress. No pallor, jaundice, cyanosis, or thyromegaly. No jugular venous distension. No lower limb edema. VITAL SIGNS: Her heart rate was 78, blood pressure 146/58, temperature was 97.7, respiratory rate 20, and oxygen saturation was 99% on room air. HEAD, EYES, EARS, NOSE AND THROAT: Showed normocephalic, atraumatic. NECK: Supple. HEART: Showed normal first and second heart sounds. No gallop, rub or murmur. CHEST: Clear to auscultation. No crepitation or rhonchi. ABDOMEN: Distended, soft, nontender. No guarding or rigidity. No organomegaly. All hernial orifice intact. Bowel sounds normal. NEUROLOGIC: She is awake, alert, responding appropriately. All cranial nerves intact. EXTREMITIES: She moves extremities without difficulty. She ambulates without assistance or assistive devices. LABORATORY DATA: Showed a white cell count of 8300, hemoglobin 13.4, hematocrit 38.8, MCV 95 and platelet count 322,000 with normal manual differential. Her chemistry showed a serum sodium 141, potassium 4.5, chloride 105, bicarbonate 28, anion gap of 8, BUN 19, creatinine 0.6, estimated GFR was 99 mL per minute. Her glucose was 111, calcium was 9.1, magnesium was 2.2. Total bilirubin, AST, ALT, alkaline phosphatase were normal. Her first set of cardiac enzymes showed troponin to be less than 0.017. Total protein was 7.7, albumin was 3.8 and lipase was 254. Her prothrombin time was 9.9, INR of 1, aPTT was 23. D-dimer was only 0.2. Urinalysis showed the urine was straw colored, clear with a pH of 8, specific gravity of 1.015. The urine was negative for protein, glucose, ketones, blood, nitrites, bilirubin. There was a trace of leukocyte esterase, 0 rbc's, 1-4 wbc's, very few bacteria and urine toxicology screen was negative. Her chest x-ray showed that there is no infiltrate, pneumothorax or effusion. Cardiac silhouette is stable, within normal limits. There is again tortuous, possibly ectatic thoracic aorta, but no acute cardiopulmonary problem. PLAN: more sets of cardiac enzyme, consult the Cardiology team. We will contact Dr. Alba for all her previous record as apparently she was at [facility] and she was extensively investigated including stress test, left heart catheterization, echocardiogram, upper and lower GI endoscopy and gastroesophageal reflux disease. TERRI WHITE MD DR: ANGELA/stephanie JOB#: [id number] / [id number]
[2018-05-29 14:19] LABS: THYROID STIM HORMONE (TSH) 0.57 uIU/mL (0.358-3.740)
[2018-05-29 14:58] VITALS: BP 113/62
--- NOTE | 2018-05-29 16:37 | CARD ---
MR#: [id number] Date of Study: 05/29/2018 Ordering Physician: JUDIE CARRILLO, Referring Physician: TERRI WHITE, Tech: NATHEN Silva APPROVED REPORT EXAM: Two-dimensional and M-mode echocardiogram with Doppler and color Doppler. Other Information Quality : Average INDICATION Dyspnea Chest Pain 2D DIMENSIONS Left Atrium(2D)3.9 (1.6-4.0cm)IVSd0.9 (0.7-1.1cm) LVDd4.4 (3.9-5.9cm)LVOT Diameter1.9 (1.8-2.4cm) PWd1.1 (0.7-1.1cm)LVDs2.2 (2.5-4.0cm) FS (%) 32.0 %SV68.8 ml LVEF(%)65.0 (>50%) Aortic Valve AoV Peak Dexter.137.0cm/Jennifer Peak GR.7.5mmHg LVOT Peak Dexter.92.1cm/sAVA (VMAX)1.84cm2 Mitral Valve MV E Jxnxxiva06.2cm/sMV DECEL [id number] MV A Atjyzpnb83.7cm/sE/A Ratio0.9 Tricuspid Valve TR P. Jfdtgrvc783uu/sRAP [id number] TR Peak Gr.67gxNbQYUT58raBf LEFT VENTRICLE The left ventricle is normal size. There is normal left ventricular wall thickness. The left ventricu lar systolic function is normal. The Ejection Fraction is 60-65%. There is normal LV segmental wall m otion. RIGHT VENTRICLE The right ventricle is normal size. There is normal right ventricular wall thickness. The right ventr icular systolic function is normal. ATRIA The left atrium size is normal. The right atrium size is normal. The interatrial septum is intact wit h no evidence for an atrial septal defect or patent foramen ovale as noted on 2-D or Doppler imaging. AORTIC VALVE The aortic valve is trileaflet. The aortic valve is mildly calcified. Doppler and Color Flow revealed mild aortic regurgitation. There is no significant aortic valvular stenosis. MITRAL VALVE The mitral valve is normal in structure and function. There is no mitral valve stenosis. Doppler and Color-flow revealed trace to mild mitral regurgitation. TRICUSPID VALVE Doppler and Color Flow revealed mild tricuspid regurgitation. There is no tricuspid valve stenosis. PULMONIC VALVE The pulmonic valve is not well visualized. Doppler and Color Flow revealed no pulmonic valvular regur gitation. There is no pulmonic valvular stenosis. GREAT VESSELS The aortic root is normal in size. The IVC is normal in size and collapses >50% with inspiration. PERICARDIAL EFFUSION There is no pleural effusion. There is no evidence of significant pericardial effusion. Critical Notification Critical Value: No <Conclusion> The left ventricular systolic function is normal. The Ejection Fraction is 60-65%. There is normal LV segmental wall motion. Mild aortic regurgitation. Trace to mild mitral regurgitation. Mild tricuspid regurgitation. There is no evidence of significant pericardial effusion. Signed by : Magnus Edwards, Electronically Approved : 05/29/2018 16:37:05
[2018-05-29] MEDS ORDERED: SIMVASTATIN 40 MG TABLET. PO SCH (21:00)
== END 2018-05-29 18:15 | disposition home or self-care (01) | DRG 313 ==
LOC: ER 20:05 → 1 SOUTH 20:30
PROVIDERS: ADMIT Internal Medicine; ATTEND Internal Medicine
DX: R07.89 Other chest pain (principal); E03.9 Hypothyroidism, unspecified; E78.00 Pure hypercholesterolemia, unspecified; E78.5 Hyperlipidemia, unspecified; I10 Essential (primary) hypertension; K21.9 Gastro-esophageal reflux disease without esophagitis; K59.00 Constipation, unspecified; Z80.7 Family history of other malignant neoplasms of lymphoid, hematopoietic and related tissues; Z82.49 Family history of ischemic heart disease and other diseases of the circulatory system; Z86.73 Personal history of transient ischemic attack (TIA), and cerebral infarction without residual deficits; Z87.11 Personal history of peptic ulcer disease; Z90.721 Acquired absence of ovaries, unilateral; Z98.82 Breast implant status; Z79.82 Long term (current) use of aspirin; Z79.899 Other long term (current) drug therapy
CPT/HCPCS: 36415; 71046; 80048; 80061; 80076; 80307; 81001; 82553; 83690; 83735; 83880; 84443; 84484; 85025; 85379; 85610; 85730; 87086; 93005; 93306; 96372; J1650; J7120; 99285-25; G0479

== ENCOUNTER → 2018-06-07 | Outpatient (CLI) | payer MEDICARE, OTHER ==
[2018-05-29 14:58] VITALS: BP 113/62
--- NOTE | 2018-06-07 14:52 | RAD ---
MR#: [id number] Date of Study: 06/07/2018 Ordering Physician: CATRACHITO EDWARDS, Referring Physician: MIKE WHITE Tech: YENNIFER Wick ARRT (R) (N) APPROVED REPORT Test Type: Exercise Stress Nurse/Tech: YENNIFER Wick ARRT (R) (N) Test Indications: cp Medications: See Electronic Medical Record Medical History: See Electronic Medical Record Resting ECG: SR Resting Heart Rate: 62 bpm Resting Blood Pressure: 169/77mmHg Pretest Chest Pain: No chest pain Nurse/Tech Notes NO CP, +SOB @ [facility]. Consent: The procedure was explained to the patient in lay terms. Informed consent was witnessed. Efra eout was entered into [facility]. History and Stress Test performed by YENNIFER Wick ARRT (R) (N) POST EXERCISE Reason for Termination: Reached target heart rate Target HR: Yes Max HR: 144 bpm Exercise duration: 7 min:sec, Stage Exercise capacity: 10METs Max Blood Pressure: 176/66mmHg Blood Pressure response to exercise: Normal blood pressure response during stress. Chest Pain: No. Arrhythmia: No. INTERPRETATION Stress EKG Conclusion: Baseline EKG showed sinus rhythm. No ischemic changes at peak stress. No arr hythmias. Imaging Protocol IMAGE PROTOCOL: Rest Tc-99m/stress Tc-99m 1 day Rest: Stress: Viability: Radiopharm.Tc99m VbbbsfsrcBr02l Sestamibi Qfxt45nDo 32mCi Img Date 06/07/2018 06/07/2018 Rest Admin Site:IV - Right WristAdministrator: YENNIFER Wick ARRT (R)(N) Stress Admin Site: IV - Right WristAdministrator: YENNIFER Wick ARRT (R)(N) STRESS DATA End Diast. Vol.61.0mlAv. Heart Rate77.0bpm LVEDV index BSA1.0mlCardiac Output0.1L/min End Syst. Vol.15.0mlCO Index BSA3.6L/min LVESV index BSA0.0mlMyocardial Hnip819.0g Eject. Acfioaou01.0% Stress Rates Pk. Fill Rate3.89EDV/secLVtime Pk. Fill 158.90msec Pk. Empty Rate4.72ESV/secLVtime Pk. Ybcpz102.79msec 1/3 Pk. Fill1.89EDV/sec Stress Scores Regional WT1.00Summed WT7.00 Regional WM0.00Summed WM0.00 Study quality was good. Left Ventricular size was Normal at Rest and Stress. Lung uptake was Normal. Left Ventricular ejection fraction is 75%. The rest and stress images show normal perfusion, normal contraction and thickening. LV Perf. Quant 17 Seg. SSS1.00 17 Seg. SRS2.00 17 Seg. SDS0.00 Stress Defect Extent (% LAD)0.00Rest Defect Extent (% LAD)0.00Rev. Defect Extent (% LAD)0.00 Stress Defect Extent (% LCX) 0.00Rest Defect Extent (% LCX)0.00Rev. Defect Extent (% LCX)0.00 Stress Defect Extent (% RCA)0.00Rest Defect Extent (% RCA)0.00Rev. Defect Extent (% RCA)0.00 Stress Defect Extent (% CHING)0.00Rest Defect Extent (% CHING)0.00Rev. Defect Extent (% CHING)0.00 Conclusion 1. Treadmill exercise cardioisotope stress test did not show any evidence of ischemia or infarct. 2. Normal left ventricular systolic function with ejection fraction calculated at 75%. 3. Patient had good activity tolerance. Low risk for cardiac events. Signed by : Catrachito Edwards, Electronically Approved : 06/07/2018 14:52:05
== END | disposition home or self-care (01) ==
LOC: NM 07:27
PROVIDERS: ATTEND Internal Medicine Cardiovascular Disease
DX: R07.9 Chest pain, unspecified (principal); I10 Essential (primary) hypertension; E78.5 Hyperlipidemia, unspecified; E78.00 Pure hypercholesterolemia, unspecified; K21.9 Gastro-esophageal reflux disease without esophagitis; E03.9 Hypothyroidism, unspecified; E87.6 Hypokalemia
CPT/HCPCS: 78452; 93017; 96374; 96376; A9500

== ENCOUNTER → 2018-08-08 | Day surgery (SDC) | payer MEDICARE, OTHER ==
[~2018-08-08] MED LIST changes: +LIDOCAINE 1%/EPI 1:100,000 20 ML VIAL. ONE; +LIDOCAINE 2%/EPI 1:100,000 20 ML VIAL. ONE
[2018-08-08 10:23] VITALS: BP 115/76
--- NOTE | 2018-08-08 15:02 | PDOC4 ---
Operative Report DATE 08/08/18 Preop Diagnosis Syncope of uncertain etiology Post-op Diagnosis Syncope of uncertain etiology Operation Performed Procedure: Successful implantation of [employer] Confirm loop recorder Details: An informed consent was obtained from patient. Patient was brought to the minor procedure suite and left chest and shoulder were prepped and draped in the usual fashion. 10 mL of 1% lidocaine was infiltrated into the skin and subcutaneous tissues for local anesthesia. An incision was made over the left fourth intercostal space 1H from the midsternal line and with the help of the delivery device provided with the kit, a [employer] Confirm loop recorder [id number] was inserted successfully. Patient tolerated the procedure well. Hemostasis was secured. There were no immediate complications. Surgeon Dr. Catrachito Edwards Blood Loss 3 cc Complications None CATRACHITO EDWARDS MD Aug 08, 2018 15:02
== END | disposition home or self-care (01) ==
LOC: SURG 07:24 → EDSTATUS 08:30 → CARD 12:39 → SDC 13:02
PROVIDERS: ATTEND Internal Medicine Cardiovascular Disease
DX: R55 Syncope and collapse (principal); I10 Essential (primary) hypertension; E78.5 Hyperlipidemia, unspecified; Z87.39 Personal history of other diseases of the musculoskeletal system and connective tissue; Z98.890 Other specified postprocedural states; Z72.89 Other problems related to lifestyle
CPT/HCPCS: 33282; 82947; C1764

== ENCOUNTER → 2018-10-17 | Outpatient (CLI) | payer MEDICARE, OTHER ==
[2018-08-08 10:23] VITALS: BP 115/76
[~2018-10-17] MED LIST changes: +HYDR-2155 PO; -HYDR-2758 PO; +IOHEXOL 240 MG/ML 50ML VIAL. ONE; +IOHEXOL 240 MG/ML 50ML VIAL. PO ONE; +IOHEXOL 300 MG/ML 75 ML VIAL. IV ONE; -LIDOCAINE 1%/EPI 1:100,000 20 ML VIAL. ONE; -LIDOCAINE 2%/EPI 1:100,000 20 ML VIAL. ONE; +METR-84 PO; -METR500T8 PO
--- NOTE | 2018-10-17 13:02 | RAD ---
CT Abdomen and Pelvis With Intravenous Contrast: History: Abdominal bloating, indigestion, chronic constipation for 3 years. Comparison: None. Technique: After administration of oral and intravenous contrast, 75 mL Omnipaque-300, CT of the abdomen and pelvis was performed. Exposure: One or more of the following individualized dose reduction techniques were utilized for this examination: 1. Automated exposure control 2. Adjustment of the mA and/or kV according to patient size 3. Use of iterative reconstruction technique Findings: Liver, spleen, pancreas, gallbladder, and bilateral adrenal glands are unremarkable. Bilateral kidneys enhance symmetrically. Aortic atherosclerosis is seen. No bowel obstruction or inflammation is identified. Appendix is without evidence of inflammation. Urinary bladder is unremarkable. Uterus and adnexa unremarkable CT appearance. No free air or free fluid is seen in the abdomen or pelvis. Impression: 1. No acute abnormality identified in the abdomen or pelvis. Electronically signed by: Neno Yap MD (10/17/2018 12:59 PM) [id number]
== END | disposition home or self-care (01) ==
LOC: CT 07:44
PROVIDERS: ATTEND Nurse Practitioner Adult Health
DX: I70.0 Atherosclerosis of aorta (principal); I10 Essential (primary) hypertension
CPT/HCPCS: 74177; Q9966; Q9967

== ENCOUNTER 2019-03-02 22:35 | Inpatient (IN) | payer MEDICARE, OTHER ==
[~2019-03-02] VITALS: Ht 152.4 cm; Wt 56.9 kg
[~2019-03-02 22:35] MED LIST changes: -IOHEXOL 240 MG/ML 50ML VIAL. ONE; -IOHEXOL 240 MG/ML 50ML VIAL. PO ONE; -IOHEXOL 300 MG/ML 75 ML VIAL. IV ONE; +METR-34 PO; -METR-84 PO
--- NOTE | 2019-03-02 22:37 | ED.ADGEN ---
Past History Past Medical History: Angina, Diabetes, High Cholesterol, Hypertension, Other Past Surgical History: Other Smoking: Non-smoker Alcohol Use: None Drug Use: None Adult General Chief Complaint Chief Complaint ".. I have chest pain.. things are not right... and I have this spasms in my eye... and face... but I am here tonight for Chest.. I see the Romanian Nurse in ... Dr. Steinberg office... :".. She checked things... She say every... thing okay.... the other day..." HPI HPI Patient is a 68 year old Romanian female who presents with above hx and complaints of chest pain. Pt. has hx of prior episodes of chest and currently has a implanted monitor for hx of dysrhythmia. Pt. Previous admitted of Chest pain and complaints of chest heaviness in May of 2018. Pt. Has prior eval for chest pain at [facility] where she had a cardiac cath and echo. Pt. has also had EGD eval in event this was source of here chest discomfort. Pt. has hx for HTN, elevated lipids. There is hx of NM with father who at age 52. Hx. of mother with Non-Hodgkin lymphoma- at age 49. Hx older brother had cancer prostate, but at 80 from head bleed after fall. Younger brother has hx. of kidney cancer and nephrectomy. Pt. does not smoke or drink alcohol. Review of Systems Review of Systems Constitutional: Denies fever or chills [] Eyes: Denies change in visual acuity, redness, or eye pain [] HENT: Denies nasal congestion or sore throat [] Respiratory: Denies cough or shortness of breath [] Cardiovascular: No additional information not addressed in HPI [] GI: Denies abdominal pain, nausea, vomiting, bloody stools or diarrhea [] : Denies dysuria or hematuria [] Musculoskeletal: Denies back pain or joint pain [] Integument: Denies rash or skin lesions [] Neurologic: Denies headache, focal weakness or sensory changes [] Endocrine: Denies polyuria or polydipsia [] All other systems were reviewed and found to be within normal limits, except as documented in this note. Family History Family History Mother of lymphoma and Father of NM, Cancer with brothers. Current Medications Current Medications Current Medications Medications (Trade) Dose Ordered Sig/Justin Start Time Stop Time Status Last Admin Dose Admin Aspirin (Children'S Aspirin) 324 mg 1X ONCE 03/02/19 22:45 03/02/19 22:46 DC 03/02/19 23:44 324 MG Lactated Ringer's 1,000 ml @ 100 mls/hr Q10H 03/02/19 22:45 03/03/19 08:44 03/02/19 22:45 100 MLS/HR Allergies Allergies Allergies Coded Allergies Type Severity Reaction Last Updated Verified No Known Drug Allergies 08/08/18 No Physical Exam Physical Exam Constitutional: Well developed, well nourished, no acute distress, non-toxic appearance. [] HENT: Normocephalic, atraumatic, bilateral external ears normal, oropharynx moist, no oral exudates, nose normal. [] Eyes: PERRLA, EOMI, conjunctiva normal, no discharge. [] Neck: Normal range of motion, no tenderness, supple, no stridor. [] Cardiovascular:Heart rate regular rhythm, no murmur [] Lungs & Thorax: Bilateral breath sounds equal at apexes on auscultation [] Implant Lt chest wall. Abdomen: Bowel sounds normal, soft, no tenderness, no masses, no pulsatile masses. [] Skin: Warm, dry, no erythema, no rash. [] Back: No tenderness, no CVA tenderness. [] Extremities: No tenderness, no cyanosis, no clubbing, ROM intact, no edema. [] Non cording appreciated. Neurologic: Alert and oriented X 3, normal motor function, normal sensory function, no focal deficits noted. [] Psychologic: Affect Anxious, judgement normal, mood normal. [] Current Patient Data Vital Signs Vital Signs Date Time Temp Pulse Resp B/P (MAP) Pulse Ox O2 Delivery O2 Flow Rate FiO2 03/02/19 23:30 97.9 88 16 98 Room Air Lab Results Laboratory Tests Test 03/02/19 23:05 03/02/19 23:59 White Blood Count 7.8 x10^3/uL (4.0-11.0) Red Blood Count 3.97 x10^6/uL (3.50-5.40) Hemoglobin 12.7 g/dL (12.0-15.5) Hematocrit 37.6 % (36.0-47.0) Mean Corpuscular Volume 95 fL (79-100) Mean Corpuscular Hemoglobin 32 pg (25-35) Mean Corpuscular Hemoglobin Concent 34 g/dL (31-37) Red Cell Distribution Width 13.2 % (11.5-14.5) Platelet Count 232 x10^3/uL (140-400) Neutrophils (%) (Auto) 47 % (31-73) Lymphocytes (%) (Auto) 39 % (24-48) Monocytes (%) (Auto) 11 % (0-9) H Eosinophils (%) (Auto) 2 % (0-3) Basophils (%) (Auto) 1 % (0-3) Neutrophils # (Auto) 3.7 x10^3uL (1.8-7.7) Lymphocytes # (Auto) 3.0 x10^3/uL (1.0-4.8) Monocytes # (Auto) 0.9 x10^3/uL (0.0-1.1) Eosinophils # (Auto) 0.1 x10^3/uL (0.0-0.7) Basophils # (Auto) 0.0 x10^3/uL (0.0-0.2) Prothrombin Time 10.3 SEC (9.4-11.4) Prothrombin Time INR 1.0 (0.9-1.1) PTT 24 SEC (23-33) D-Dimer (Connie) 0.27 mg/L (0.00-0.50) Sodium Level 144 mmol/L (136-145) Potassium Level 3.9 mmol/L (3.5-5.1) Chloride Level 108 mmol/L (98-107) H Carbon Dioxide Level 29 mmol/L (21-32) Anion Gap 7 (6-14) Blood Urea Nitrogen 15 mg/dL (7-20) Creatinine 0.7 mg/dL (0.6-1.0) Estimated GFR (Cockcroft-Gault) 83.0 Glucose Level 127 mg/dL (70-99) H Calcium Level 8.9 mg/dL (8.5-10.1) Magnesium Level 2.0 mg/dL (1.8-2.4) Total Bilirubin 0.4 mg/dL (0.2-1.0) Direct Bilirubin 0.1 mg/dL (0.0-0.2) Aspartate Amino Transferase (AST) 28 U/L (15-37) Alanine Aminotransferase (ALT) 27 U/L (14-59) Alkaline Phosphatase 46 U/L (46-116) Creatine Kinase 124 U/L (26-192) Troponin I Quantitative < 0.017 ng/mL (0-0.055) LV-Xuy-X-Type Natriuretic Peptide 143 pg/mL (0-124) H Total Protein 7.1 g/dL (6.4-8.2) Albumin 3.3 g/dL (3.4-5.0) L Lipase 202 U/L (73-393) Urine Collection Type Unknown Urine Color Straw Urine Clarity Clear Urine pH 7.5 Urine Specific [place] 1.015 Urine Protein Neg (NEG-TRACE) Urine Glucose (UA) Neg mg/dL (NEG) Urine Ketones (Stick) Neg mg/dL (NEG) Urine Blood Trace (NEG) Urine Nitrite Neg (NEG) Urine Bilirubin Neg (NEG) Urine Urobilinogen Dipstick 0.2 mg/dL (0.2 mg/dL) Urine Leukocyte Esterase Neg (NEG) Urine RBC Occ /HPF (0-2) Urine WBC 0 /HPF (0-4) Urine Squamous Epithelial Cells Occ /LPF Urine Bacteria Few /HPF (0-FEW) Urine Opiates Screen Neg (NEG) Urine Methadone Screen Neg (NEG) Urine Barbiturates Neg (NEG) Urine Phencyclidine Screen Neg (NEG) Urine Amphetamine/Methamphetamine Neg (NEG) Urine Benzodiazepines Screen Neg (NEG) Urine Cocaine Screen Neg (NEG) Urine Cannabinoids Screen Neg (NEG) Urine Ethyl Alcohol Neg (NEG) EKG EKG My interpretation EKG shows a sinus rhythm at 68 bpm. There are some nonspecific contour abnormalities anterior septal region as well as left axis.[] Radiology/Procedures Radiology/Procedures My interpretation of chest x-ray shows no acute changes from prior x-ray on file. Does have a implanted monitor.[] Course & Med Decision Making Course & Med Decision Making Pertinent Labs and Imaging studies reviewed. (See chart for details) Heart score 4-[address] Cuadra for further evaluation and treatment. However when patient was collected to be transferred [place] for further evaluation and treatment patient refused admission. Pt. states she does not want to wait around all day for the cardiology or admission doctor to see her. Pt. eventually agrees to admission if she gets a repeat EKG in the morning and repeat Cardiac labs. [] Final Impression Final Impression 1. Chest Pain[] 2. Accelerated HTN 3. DM Dragon Disclaimer Saurabhon Disclaimer This electronic medical record was generated, in whole or in part, using a voice recognition dictation system. Discharge Summary Visit Information Final Diagnosis Problems Medical Problems: (1) Chest pain Status: Acute Brief Hospital Course Allergies Allergies Coded Allergies Type Severity Reaction Last Updated Verified No Known Drug Allergies 08/08/18 No Vital Signs Vital Signs Date Time Temp Pulse Resp B/P (MAP) Pulse Ox O2 Delivery O2 Flow Rate FiO2 03/02/19 23:30 97.9 88 16 98 Room Air Lab Results Laboratory Tests Test 03/02/19 23:05 03/02/19 23:59 White Blood Count 7.8 x10^3/uL (4.0-11.0) Red Blood Count 3.97 x10^6/uL (3.50-5.40) Hemoglobin 12.7 g/dL (12.0-15.5) Hematocrit 37.6 % (36.0-47.0) Mean Corpuscular Volume 95 fL (79-100) Mean Corpuscular Hemoglobin 32 pg (25-35) Mean Corpuscular Hemoglobin Concent 34 g/dL (31-37) Red Cell Distribution Width 13.2 % (11.5-14.5) Platelet Count 232 x10^3/uL (140-400) Neutrophils (%) (Auto) 47 % (31-73) Lymphocytes (%) (Auto) 39 % (24-48) Monocytes (%) (Auto) 11 % (0-9) Eosinophils (%) (Auto) 2 % (0-3) Basophils (%) (Auto) 1 % (0-3) Neutrophils # (Auto) 3.7 x10^3uL (1.8-7.7) Lymphocytes # (Auto) 3.0 x10^3/uL (1.0-4.8) Monocytes # (Auto) 0.9 x10^3/uL (0.0-1.1) Eosinophils # (Auto) 0.1 x10^3/uL (0.0-0.7) Basophils # (Auto) 0.0 x10^3/uL (0.0-0.2) Prothrombin Time 10.3 SEC (9.4-11.4) Prothromb Time International Ratio 1.0 (0.9-1.1) Activated Partial Thromboplast Time 24 SEC (23-33) D-Dimer (Connie) 0.27 mg/L (0.00-0.50) Sodium Level 144 mmol/L (136-145) Potassium Level 3.9 mmol/L (3.5-5.1) Chloride Level 108 mmol/L (98-107) Carbon Dioxide Level 29 mmol/L (21-32) Anion Gap 7 (6-14) Blood Urea Nitrogen 15 mg/dL (7-20) Creatinine 0.7 mg/dL (0.6-1.0) Estimated GFR (Cockcroft-Gault) 83.0 Glucose Level 127 mg/dL (70-99) Calcium Level 8.9 mg/dL (8.5-10.1) Magnesium Level 2.0 mg/dL (1.8-2.4) Total Bilirubin 0.4 mg/dL (0.2-1.0) Direct Bilirubin 0.1 mg/dL (0.0-0.2) Aspartate Amino Transf (AST/SGOT) 28 U/L (15-37) Alanine Aminotransferase (ALT/SGPT) 27 U/L (14-59) Alkaline Phosphatase 46 U/L (46-116) Creatine Kinase 124 U/L (26-192) Troponin I Quantitative < 0.017 ng/mL (0-0.055) KO-Xlb-I-Type Natriuretic Peptide 143 pg/mL (0-124) Total Protein 7.1 g/dL (6.4-8.2) Albumin 3.3 g/dL (3.4-5.0) Lipase 202 U/L (73-393) Urine Collection Type Unknown Urine Color Straw Urine Clarity Clear Urine pH 7.5 Urine Specific [place] 1.015 Urine Protein Neg (NEG-TRACE) Urine Glucose (UA) Neg mg/dL (NEG) Urine Ketones (Stick) Neg mg/dL (NEG) Urine Blood Trace (NEG) Urine Nitrite Neg (NEG) Urine Bilirubin Neg (NEG) Urine Urobilinogen Dipstick 0.2 mg/dL (0.2 mg/dL) Urine Leukocyte Esterase Neg (NEG) Urine RBC Occ /HPF (0-2) Urine WBC 0 /HPF (0-4) Urine Squamous Epithelial Cells Occ /LPF Urine Bacteria Few /HPF (0-FEW) Urine Opiates Screen Neg (NEG) Urine Methadone Screen Neg (NEG) Urine Barbiturates Neg (NEG) Urine Phencyclidine Screen Neg (NEG) Urine Amphetamine/Methamphetamine Neg (NEG) Urine Benzodiazepines Screen Neg (NEG) Urine Cocaine Screen Neg (NEG) Urine Cannabinoids Screen Neg (NEG) Urine Ethyl Alcohol Neg (NEG) Brief Hospital Course Ms. Madrigal is a 68 old female who presented with CP. Admitted Dr Steinberg. Discharge Information Condition at Discharge: Improved Dischare Medications Current Medications Aspirin (Children'S Aspirin) 324 mg 1X ONCE PO Last administered on 03/02/19at 23:44; Admin Dose 324 MG; Start 03/02/19 at 22:45; Stop 03/02/19 at 22:46; Status DC Lactated Ringer's 1,000 ml @ 100 mls/hr Q10H IV Last administered on at 22:45; Admin Dose 100 MLS/HR; Start 03/02/19 at 22:45; Stop 03/03/19 at 08: 44 Active Scripts Active Reported Lisinopril 10 Mg Tablet 10 Mg PO DAILY LAST DOSE GIVEN: DATE: TODAY AM NEXT DOSE DUE: DATE: TOMORR Aspirin 325 Mg Tablet 325 Mg PO DAILY LAST DOSE GIVEN: DATE: NEXT DOSE DUE: DATE: TIME: Simvastatin 40 Mg Tablet 40 Mg PO HS LAST DOSE GIVEN: DATE: YESTERDAY TIME: AT BEDTIME NEXT DOSE DUE: DATE: TODAY TIME: AT BEDTIME Atenolol 50 Mg Tablet 50 Mg PO DAILY LAST DOSE GIVEN: DATE: NEXT DOSE: DATE: DATE: ORR Xin Disclaimer This chart was dictated in whole or in part using Voice Recognition software in a busy, high-work load, and often noisy Emergency Department environment. It may contain unintended and wholly unrecognized errors or omissions. ADAMA ARRIOLA MD Mar 02, 2019 22:37
[2019-03-02] MEDS ORDERED: IV RINGERS SOLUTION,LACTATED 1,000 ML IV SCH (22:45)
[2019-03-02] MEDS ORDERED: ASPIRIN 81 MG TAB.CHEW PO ONE (22:45)
--- NOTE | 2019-03-02 23:18 | EKG ---
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
[2019-03-02 23:36] LABS: BASO % 1 % (0-3); EOS # 0.1 x10^3/uL (0.0-0.7); EOS % 2 % (0-3); HEMATOCRIT 37.6 % (36.0-47.0); HEMOGLOBIN 12.7 g/dL (12.0-15.5); LYMPH % 39 % (24-48); MEAN CORPUSCULAR HEMOGLOBIN 32 pg (25-35); MEAN CORPUSCULAR HGB CONC 34 g/dL (31-37); MEAN CORPUSCULAR VOLUME 95 fL (79-100); MONO # 0.9 x10^3/uL (0.0-1.1); MONO % 11 % (0-9); NEUT # 3.7 x10^3uL (1.8-7.7); NEUT % 47 % (31-73); PLATELET COUNT 232 x10^3/uL (140-400); RED BLOOD COUNT 3.97 x10^6/uL (3.50-5.40); RED CELL DISTRIBUTION WIDTH 13.2 % (11.5-14.5); WHITE BLOOD COUNT 7.8 x10^3/uL (4.0-11.0)
[2019-03-02 23:53] LABS: ALBUMIN 3.3 g/dL (3.4-5.0); CALCIUM 8.9 mg/dL (8.5-10.1); CREATININE 0.7 mg/dL (0.6-1.0); DIRECT BILIRUBIN 0.1 mg/dL (0.0-0.2); POTASSIUM 3.9 mmol/L (3.5-5.1); TOTAL BILIRUBIN 0.4 mg/dL (0.2-1.0); TOTAL PROTEIN 7.1 g/dL (6.4-8.2)
[2019-03-03] MEDS ORDERED: ONDANSETRON PF 4 MG/2 ML VIAL. IV PRN (00:15)
[2019-03-03] MEDS ORDERED: NITROGLYCERIN OINT 1 GM PACKET. TP ONE (00:30)
[2019-03-03] MEDS: IV RINGERS SOLUTION,LACTATED 1,000 ML IV SCH ×2 (01:00→10:22)
[2019-03-03 01:38] LABS: BARBITURATES NEG (NEG); BENZODIAZEPINES NEG (NEG); CANNABINOIDS NEG (NEG); COCAINE NEG (NEG); METHADONE NEG (NEG); OPIATES NEG (NEG); PHENCYCLIDINE NEG (NEG)
[2019-03-03 01:43] LABS: AMPHETAMINE/METHAMPHETAMINE NEG (NEG)
[2019-03-03 02:20] LABS: BACTERIA,URINE FEW /HPF (0-FEW); BILIRUBIN,URINE NEG (NEG); CLARITY,URINE CLEAR; COLOR,URINE STRAW; GLUCOSE,URINE NEG (NEG); NITRITE,URINE NEG (NEG); RBC,URINE OCC /HPF (0-2); SQUAMOUS EPITHELIAL CELL,UR OCC /LPF; UROBILINOGEN,URINE 0.2 mg/dL (0.2 mg/dL); WBC,URINE 0 /HPF (0-4)
[2019-03-03 02:23] VITALS: BP 150/77
[2019-03-03] MEDS ORDERED: MULT1TAB52 PO (03:49)
[2019-03-03] MEDS ORDERED: DIVA-53 PO (03:49)
[2019-03-03] MEDS ORDERED: GABA-585 PO (03:49)
[2019-03-03] MEDS ORDERED: CALC-157 PO (03:49)
--- NOTE | 2019-03-03 05:14 | RAD ---
EXAM: AP View of the chest DATE: 03/02/2019 11:36 PM INDICATION: Chest pain COMPARISON: 05/28/2018 FINDINGS: Heart is top normal in size. Atherosclerotic calcifications of the tortuous aorta are seen. No focal parenchymal airspace opacity. No lobar consolidation. No pleural effusion or pneumothorax. IMPRESSION: Minimal opacities in the perihilar region and lung bases likely atelectasis, accentuated by low lung findings. Electronically signed by: Bhupendra Hummel MD (03/03/2019 5:11 AM) [facility]
[2019-03-03 06:17] VITALS: BP 110/68
[2019-03-03] MEDS ORDERED: GABAPENTIN 100 MG CAPSULE. PO SCH (09:00)
[2019-03-03] MEDS ORDERED: DIVALPROEX SODIUM 250 MG TABLET.DR. PO SCH (09:00)
[2019-03-03] MEDS ORDERED: NITROGLYCERIN OINT 1 GM PACKET. TP SCH (09:00)
[2019-03-03] MEDS ORDERED: MULTIVITAMIN with MINERAL TABLET. PO SCH (09:00)
[2019-03-03] MEDS ORDERED: ASPIRIN 325 MG TABLET PO SCH ×2 (09:00→21:00)
[2019-03-03] MEDS ORDERED: ASPIRIN 81 MG TAB.CHEW PO SCH (09:00)
[2019-03-03] MEDS ORDERED: CALCIUM CARB/VIT D3 500/200 TABLET PO SCH (09:00)
[2019-03-03] MEDS ORDERED: LISINOPRIL 10 MG TABLET PO SCH (09:00)
[2019-03-03 10:29] LABS: THYROID STIM HORMONE (TSH) 3.9 uIU/mL (0.358-3.740)
[2019-03-03 10:31] VITALS: BP 120/71
--- NOTE | 2019-03-03 12:09 | DISCH ---
DISCHARGE ORDERS CONDITION AT DISCHARGE: Stable POST DISCHARGE ORDERS: ACTIVITY ORDERS: Activity as tolerated WEIGHT BEARING STATUS: As tolerated BATHING ORDERS: Shower-keep dressing dry WOUND/INCISION CARE: No wound care needed OTHER ORDERS: follow up with her physican in two d ays tue CHECKS AFTER DISCHARGE: CHECKS AFTER DISCHARGE: Check blood press - daily, Check your Temp as needed TREATMENT/EQUIPMENT ORDERS: ADAPTIVE EQUIPMENT NEEDED: None DISCHARGE MEDICATIONS: Home Meds Reported Medications Calcium Carbonate/Vitamin D3 (CALCIUM 500 + VIT D 200 TABLET) 1 Each Tablet, 1 EACH PO DAILY for supplement, TAB 03/03/19 Multivitamin (MULTIVITAMINS) 1 Each Tablet, 1 TAB PO DAILY for supplement, #90 TAB 3 Refills 03/03/19 Divalproex Sodium (DIVALPROEX SODIUM) 500 Mg Tablet.dr, 1 TAB PO BID for per pt , "twitching" of eye, #60 TAB 1 Refill 03/03/19 Gabapentin (GABAPENTIN ) 100 Mg Capsule, 100 MG PO BID for NEUROGENIC PAIN, CAP 03/03/19 Lisinopril (LISINOPRIL) 10 Mg Tablet, 20 MG PO DAILY for HIGH BLOOD PRESSURE LAST DOSE GIVEN: DATE: NEXT DOSE DUE: DATE: TOMORR AM 06/18/14 Aspirin (ASPIRIN) 325 Mg Tablet, 325 MG PO DAILY for HEART HEALTH LAST DOSE GIVEN: DATE: NEXT DOSE DUE: DATE: AM TIME: 06/18/14 Simvastatin (SIMVASTATIN) 40 Mg Tablet, 40 MG PO HS for HIGH CHOLESTEROL LAST DOSE GIVEN: DATE: YESTERDAY TIME: AT BEDTIME NEXT DOSE DUE: DATE: TODAY TIME: AT BEDTIME 06/18/14 Discontinued Reported Medications Atenolol (ATENOLOL ) 50 Mg Tablet, 50 MG PO DAILY for HIGH BLOOD PRESSURE LAST DOSE GIVEN: DATE: NEXT DOSE: DATE: ORR AM DATE: ORR AM 06/18/14 BETTY CAMPOS MD Mar 03, 2019 12:09
[2019-03-03] MEDS ORDERED: NITR0.3T5 SL (12:11)
[2019-03-03] MEDS ORDERED: SIMVASTATIN 40 MG TABLET. PO SCH (21:00)
--- NOTE | 2019-03-05 14:48 | EKG ---
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
--- NOTE | 2019-03-08 09:53 | HP ---
ADMIT DATE: 03/03/2019 HISTORY OF PRESENT ILLNESS: A 68-year-old female came in through the Emergency Room complaining of chest pain. She has an implanted monitor for history of dysrhythmia. The patient notes chest heaviness since 05/2018. She had prior evaluation at [facility] and cardiac catheterization and echo. EGD evaluated ____ possible source of her chest pain, the patient was admitted for rule out SC protocol. FAMILY HISTORY: Positive for SC in the father, at 52. Mother had non-Hodgkin's lymphoma, diet at 49. One brother with prostate cancer and another brother with kidney cancer with nephrectomy. SOCIAL HISTORY: The patient denies smoking, alcohol or drug use. PAST MEDICAL HISTORY: Positive for angina, diabetes, hypercholesterolemia, hypertension, right oophorectomy, hypothyroidism, immunizations up-to-date on flu, DVT, and cataract extraction. ALLERGIES: No known drug allergies. MEDICATIONS: Reconciled in the usual fashion including Zocor, nitroglycerin, lisinopril, aspirin, gabapentin, calcium, and multivitamin. REVIEW OF SYSTEMS: Positive for chest pain, not necessarily with exertion. Denies any headaches, visual changes, blurred vision, double vision. Denies any melena, hematochezia, or hematemesis and neurologically intact. PHYSICAL EXAMINATION: GENERAL: On examination, she is a pleasant white Occitan female, in no apparent distress. VITAL SIGNS: Blood pressure 150/70, respiratory rate 20, pulse 70, afebrile. HEENT: The patient's head was atraumatic, normocephalic. Eyes: PERRLA without jaundice. Mouth and throat were normal. NECK: Supple. LUNGS: Clear. CARDIOVASCULAR: Regular sinus rhythm, S1, S2, without murmur, rub, thrill, or extra heart sound. ABDOMEN: Soft, nontender, no rebound or guarding. Positive bowel sounds, no hepatosplenomegaly. EXTREMITIES: No clubbing, cyanosis or edema. NEUROLOGIC: The patient was alert and oriented x 3. The patient was admitted to the hospital for further evaluation and treatment. The patient had a rule out myocardial infarction protocol. Cardiac enzymes were negative. Albumin was slightly low at 3.3. TSH here slightly high at 3.9, questionable. The patient's cholesterol shows an LDL of 122 and HDL of 46. Otherwise, the patient made an excellent progress during the rest of her hospitalization. She was discharged home. She will follow up with her primary care doctor as an outpatient, make further evaluation and make further assessment on these other labs that were noted above. IMPRESSION AND PLAN: Chest pain, angina, hypothyroidism, mild protein malnutrition. Plan as above. BETTY CAMPOS MD DR: CARA/stephanie JOB#: [id number] / [id number]
--- NOTE | 2019-03-08 16:40 | SSS ---
ADMIT DATE: 03/03/2019 HISTORY OF PRESENT ILLNESS: A 68-year-old female came in through the Emergency Room complaining of chest pain. She has an implanted monitor for history of dysrhythmia. The patient notes chest heaviness since 05/2018. She had prior evaluation at [facility] and cardiac catheterization and echo. EGD evaluated ____ possible source of her chest pain, the patient was admitted for rule out AR protocol. FAMILY HISTORY: Positive for AR in the father, at 52. Mother had non-Hodgkin's lymphoma, diet at 49. One brother with prostate cancer and another brother with kidney cancer with nephrectomy. SOCIAL HISTORY: The patient denies smoking, alcohol or drug use. PAST MEDICAL HISTORY: Positive for angina, diabetes, hypercholesterolemia, hypertension, right oophorectomy, hypothyroidism, immunizations up-to-date on flu, DVT, and cataract extraction. ALLERGIES: No known drug allergies. MEDICATIONS: Reconciled in the usual fashion including Zocor, nitroglycerin, lisinopril, aspirin, gabapentin, calcium, and multivitamin. REVIEW OF SYSTEMS: Positive for chest pain, not necessarily with exertion. Denies any headaches, visual changes, blurred vision, double vision. Denies any melena, hematochezia, or hematemesis and neurologically intact. PHYSICAL EXAMINATION: GENERAL: On examination, she is a pleasant white Bengali female, in no apparent distress. VITAL SIGNS: Blood pressure 150/70, respiratory rate 20, pulse 70, afebrile. HEENT: The patient's head was atraumatic, normocephalic. Eyes: PERRLA without jaundice. Mouth and throat were normal. NECK: Supple. LUNGS: Clear. CARDIOVASCULAR: Regular sinus rhythm, S1, S2, without murmur, rub, thrill, or extra heart sound. ABDOMEN: Soft, nontender, no rebound or guarding. Positive bowel sounds, no hepatosplenomegaly. EXTREMITIES: No clubbing, cyanosis or edema. NEUROLOGIC: The patient was alert and oriented x 3. The patient was admitted to the hospital for further evaluation and treatment. The patient had a rule out myocardial infarction protocol. Cardiac enzymes were negative. Albumin was slightly low at 3.3. TSH here slightly high at 3.9, questionable. The patient's cholesterol shows an LDL of 122 and HDL of 46. Otherwise, the patient made an excellent progress during the rest of her hospitalization. She was discharged home. She will follow up with her primary care doctor as an outpatient, make further evaluation and make further assessment on these other labs that were noted above. IMPRESSION AND PLAN: Chest pain, angina, hypothyroidism, mild protein malnutrition. Plan as above. BETTY CAMPOS MD DR: CARA/stephanie JOB#: [id number] / [id number]
== END 2019-03-03 12:30 | disposition home or self-care (01) | DRG 311 ==
LOC: ER 22:35 → 1 SOUTH 03-03 00:01
PROVIDERS: ADMIT Family Medicine; ATTEND Family Medicine
DX: I20.9 Angina pectoris, unspecified (principal); E44.1 Mild protein-calorie malnutrition; E11.9 Type 2 diabetes mellitus without complications; E78.00 Pure hypercholesterolemia, unspecified; I10 Essential (primary) hypertension; I25.2 Old myocardial infarction; Z80.7 Family history of other malignant neoplasms of lymphoid, hematopoietic and related tissues; Z82.49 Family history of ischemic heart disease and other diseases of the circulatory system; E03.9 Hypothyroidism, unspecified; Z80.42 Family history of malignant neoplasm of prostate; Z80.51 Family history of malignant neoplasm of kidney; Z90.721 Acquired absence of ovaries, unilateral
CPT/HCPCS: 36415; 71046; 80048; 80061; 80076; 80307; 81001; 82550; 82947; 83690; 83735; 83880; 84443; 84484; 85025; 85379; 85610; 85730; 93005; J7120; 99285-25

== ENCOUNTER → 2019-07-17 | Outpatient (CLI) | payer MEDICARE, OTHER ==
[~2019-07-17] MED LIST changes: +CALC-157 PO; +DIVA-53 PO; +GABA-585 PO; +MULT1TAB52 PO; +NITR0.3T5 SL
--- NOTE | 2019-07-17 17:28 | RAD ---
Examination: HIP RIGHT 2V WITH PELVIS History: Right hip pain, no known injury. Pain with walking and exercise. Comparison/Correlation: 10/17/2018 CT abdomen and pelvis with oral and IV contrast Findings: Frontal view of the pelvis was obtained. Frontal view of the right hip and frog-leg lateral view of the right hip were obtained. Sacroiliac and hip joint spaces are normal. No fracture or bony destruction. Bone island involving the left supra-acetabular region is present. Soft tissues are unremarkable. No significant degenerative change especially for the patient's age. Impression: No suspicious process. Electronically signed by: Roby Meng MD (07/17/2019 5:25 PM) [facility]
== END | disposition home or self-care (01) ==
LOC: DXRAD 16:41
PROVIDERS: ATTEND Family Medicine
DX: M25.551 Pain in right hip (principal)
CPT/HCPCS: 73502

== ENCOUNTER → 2019-07-31 | Outpatient (CLI) | payer MEDICARE, OTHER ==
--- NOTE | 2019-07-31 16:45 | RAD ---
EXAM: Dual energy x-ray absorptiometry (DEXA). HISTORY: Postmenopausal presents for osteoporosis screening. COMPARISON: None. TECHNIQUE: Dual energy x-ray absorptiometry of the lumbar spine and right hip was performed. Calculation of bone mineral density based on standard deviations above or below the expected young adult normal value (T-score) was completed. FINDINGS: The average bone mineral density in the 1st through 4th lumbar vertebrae is 1.130 g/cmxcm, corresponding with a T-score of -0.5. The average total bone mineral density in the right hip is 0.775 g/cmxcm, corresponding with a T-score of -1.5. IMPRESSION: 1. Osteopenia measured at the right hip. 2. Normal bone mineral density measured at the lumbar spine. Note: Definitions established by the World Health Organization: 1. Normal: T-score is -1.0 or above. 2. Osteopenia: T-score is between -1.0 and -2.5 . 3. Osteoporosis: T-score is -2.5 or below. Electronically signed by: Laverne Jones MD (07/31/2019 4:42 PM) [id number]
== END | disposition home or self-care (01) ==
LOC: DXRAD 12:46
PROVIDERS: ATTEND Family Medicine
DX: M85.88 Other specified disorders of bone density and structure, other site (principal)
CPT/HCPCS: 77080

== ENCOUNTER → 2019-09-04 | Outpatient (CLI) | payer MEDICARE, OTHER ==
[~2019-09-04] MED LIST changes: +IOHEXOL 240 MG/ML 50ML VIAL. ONE; +IOHEXOL 240 MG/ML 50ML VIAL. PO ONE; +IOHEXOL 300 MG/ML 75 ML VIAL. IV ONE
[2019-09-04 08:28] LABS: CREATININE 0.7 mg/dL (0.6-1.0)
--- NOTE | 2019-09-04 17:24 | RAD ---
Examination: CT ABD PELV W/ORAL IV CONTRAST History: Diffuse abdominal pain Comparison/Correlation: 10/17/2018 CT abdomen and pelvis with IV contrast, 12/25/2014 CT abdomen and pelvis without and with contrast, 06/18/2014 CT abdomen and pelvis with oral and IV contrast Findings: Axial images of the abdomen and pelvis were obtained following IV and oral contrast. Radiopaque density involving the left chest wall is noted anteriorly and has the appearance of a loop recorder device. Visualized lung bases are clear. Liver, spleen, pancreas, and adrenal glands are normal. Gallbladder fossa is unremarkable. Kidneys are unremarkable. No extraluminal gas. No bowel obstruction. Appendix is normal. No inflammatory findings. No ascites or pelvic free fluid. Urinary bladder is unremarkable. Uterus is unremarkable for the patient's age. No lumbar spine facet joint degenerative changes are present. Impression: No mass or inflammatory process. PQRS Compliance Statement: One or more of the following individualized dose reduction techniques were utilized for this examination: 1. Automated exposure control 2. Adjustment of the mA and/or kV according to patient size 3. Use of iterative reconstruction technique Electronically signed by: Roby Meng MD (09/04/2019 5:21 PM) [facility]
== END | disposition home or self-care (01) ==
LOC: CT 07:55
PROVIDERS: ATTEND Internal Medicine Gastroenterology
DX: R10.84 Generalized abdominal pain (principal)
CPT/HCPCS: 36415; 74177; 82565; 84520; Q9966; Q9967

== ENCOUNTER 2019-12-17 13:04 | Emergency (ER) | payer MEDICARE, OTHER ==
[~2019-12-17] VITALS: Ht 152.4 cm; Wt 56.6 kg
[~2019-12-17 13:04] MED LIST changes: -IOHEXOL 240 MG/ML 50ML VIAL. ONE; -IOHEXOL 240 MG/ML 50ML VIAL. PO ONE; -IOHEXOL 300 MG/ML 75 ML VIAL. IV ONE; +SIMV40TA18 PO; -SIMV40TA3 PO
[2019-12-17 13:12] VITALS: BP 162/85
[2019-12-17] MEDS ORDERED: IV NORMAL SALINE 1,000ML 1,000 ML IV ONE (13:15)
--- NOTE | 2019-12-17 13:37 | RAD ---
CT HEAD WO CONTRAST History: Headache and dizziness Comparison: August 02, 2016 Technique: Noncontrast CT imaging was performed of the head. Exposure: One or more of the following individualized dose reduction techniques were utilized for this examination: 1. Automated exposure control 2. Adjustment of the mA and/or kV according to patient size 3. Use of iterative reconstruction technique. Findings: No acute extra-axial or parenchymal hemorrhage is identified. There is no significant intra-axial mass effect, midline shift, or extra-axial fluid collection. There is again some calcification of the bilateral basal ganglia. There is again multifocal moderate to severe ill-defined low-density of the supratentorial parenchyma bilaterally. The fuentes-white differentiation of the major vascular territories is preserved. The ventricles, sulci, and cisterns are within normal limits in size and configuration. The mastoid air cells and the visualized paranasal sinuses are aerated. No acute calvarial abnormality is identified. Impression: 1. There is no evidence of acute intracranial hemorrhage. There is again multifocal low-density of the supratentorial parenchyma bilaterally, nonspecific findings more commonly due to chronic microvascular ischemic disease in a patient this age. Electronically signed by: Flex Regalado MD (12/17/2019 1:34 PM) [id number]
[2019-12-17 13:50] LABS: BASO # 0.1 x10^3/uL (0.0-0.2); BASO % 1 % (0-3); EOS # 0.2 x10^3/uL (0.0-0.7); EOS % 2 % (0-3); HEMATOCRIT 41.3 % (36.0-47.0); LYMPH # 3.5 x10^3/uL (1.0-4.8); LYMPH % 42 % (24-48); MEAN CORPUSCULAR HEMOGLOBIN 32 pg (25-35); MEAN CORPUSCULAR HGB CONC 34 g/dL (31-37); MEAN CORPUSCULAR VOLUME 95 fL (79-100); MONO # 0.5 x10^3/uL (0.0-1.1); MONO % 6 % (0-9); NEUT # 4.2 x10^3uL (1.8-7.7); NEUT % 50 % (31-73); PLATELET COUNT 284 x10^3/uL (140-400); RED BLOOD COUNT 4.36 x10^6/uL (3.50-5.40); RED CELL DISTRIBUTION WIDTH 12.9 % (11.5-14.5); WHITE BLOOD COUNT 8.5 x10^3/uL (4.0-11.0)
[2019-12-17 13:59] LABS: CALCIUM 9.6 mg/dL (8.5-10.1); CREATININE 0.6 mg/dL (0.6-1.0); GFR 98.8; POTASSIUM 3.3 mmol/L (3.5-5.1)
[2019-12-17 14:05] LABS: ALBUMIN 3.8 g/dL (3.4-5.0); TOTAL BILIRUBIN 0.9 mg/dL (0.2-1.0); TOTAL PROTEIN 7.6 g/dL (6.4-8.2)
--- NOTE | 2019-12-17 14:15 | PHYS DOC ---
Past History Past Medical History: Angina, Diabetes, High Cholesterol, Hypertension, Other Past Surgical History: Other Additional Past Surgical Histo: right ovary removed 1996 Smoking: Non-smoker Alcohol Use: None Drug Use: None Adult General Chief Complaint Chief Complaint: DIZZY/LIGHT HEADED HPI HPI 69-year-old female presents with dizziness. Patient has been feeling very dizzy today. She describes it as a lightheaded feeling. She has not had nausea, vomiting, or diarrhea. She also has been feeling some abdominal bloating. This is not new as she has this frequently. She denies fever or chills. She denies falls or trauma. Review of Systems Review of Systems Constitutional: Denies fever or chills [] Eyes: Denies change in visual acuity, redness, or eye pain [] HENT: Denies nasal congestion or sore throat [] Respiratory: Denies cough or shortness of breath [] Cardiovascular: No additional information not addressed in HPI [] GI: Denies abdominal pain, nausea, vomiting, bloody stools or diarrhea [] : Denies dysuria or hematuria [] Musculoskeletal: Denies back pain or joint pain [] Integument: Denies rash or skin lesions [] Neurologic: Denies headache, focal weakness or sensory changes [] Endocrine: Denies polyuria or polydipsia [] All other systems were reviewed and found to be within normal limits, except as documented in this note. Current Medications Current Medications Current Medications Medications (Trade) Dose Ordered Sig/Justin Start Time Stop Time Status Last Admin Dose Admin Sodium Chloride 1,000 ml @ 1,000 mls/hr 1X ONCE 12/17/19 13:15 12/17/19 14:14 12/17/19 13:15 1,000 MLS/HR Allergies Allergies Allergies Coded Allergies Type Severity Reaction Last Updated Verified No Known Drug Allergies 08/08/18 No Physical Exam Physical Exam Constitutional: Well developed, well nourished, no acute distress, non-toxic appearance. [] HENT: Normocephalic, atraumatic, bilateral external ears normal, oropharynx moist, no oral exudates, nose normal. [] Eyes: PERRLA, EOMI, conjunctiva normal, no discharge. [] Neck: Normal range of motion, no tenderness, supple, no stridor. [] Cardiovascular:Heart rate regular rhythm, no murmur [] Lungs & Thorax: Bilateral breath sounds clear to auscultation [] Abdomen: Bowel sounds normal, soft, no tenderness, no masses, no pulsatile masses. [] Skin: Warm, dry, no erythema, no rash. [] Back: No tenderness, no CVA tenderness. [] Extremities: No tenderness, no cyanosis, no clubbing, ROM intact, no edema. [] Neurologic: Alert and oriented X 3, normal motor function, normal sensory funct ion, no focal deficits noted. [] Psychologic: Affect normal, judgement normal, mood normal. [] Current Patient Data Vital Signs Vital Signs Date Time Temp Pulse Resp B/P (MAP) Pulse Ox O2 Delivery O2 Flow Rate FiO2 12/17/19 13:12 73 18 162/85 (110) 98 Lab Results Laboratory Tests Test 12/17/19 13:40 White Blood Count 8.5 x10^3/uL (4.0-11.0) Red Blood Count 4.36 x10^6/uL (3.50-5.40) Hemoglobin 14.0 g/dL (12.0-15.5) Hematocrit 41.3 % (36.0-47.0) Mean Corpuscular Volume 95 fL (79-100) Mean Corpuscular Hemoglobin 32 pg (25-35) Mean Corpuscular Hemoglobin Concent 34 g/dL (31-37) Red Cell Distribution Width 12.9 % (11.5-14.5) Platelet Count 284 x10^3/uL (140-400) Neutrophils (%) (Auto) 50 % (31-73) Lymphocytes (%) (Auto) 42 % (24-48) Monocytes (%) (Auto) 6 % (0-9) Eosinophils (%) (Auto) 2 % (0-3) Basophils (%) (Auto) 1 % (0-3) Neutrophils # (Auto) 4.2 x10^3uL (1.8-7.7) Lymphocytes # (Auto) 3.5 x10^3/uL (1.0-4.8) Monocytes # (Auto) 0.5 x10^3/uL (0.0-1.1) Eosinophils # (Auto) 0.2 x10^3/uL (0.0-0.7) Basophils # (Auto) 0.1 x10^3/uL (0.0-0.2) Sodium Level 142 mmol/L (136-145) Potassium Level 3.3 mmol/L (3.5-5.1) L Chloride Level 105 mmol/L (98-107) Carbon Dioxide Level 28 mmol/L (21-32) Anion Gap 9 (6-14) Blood Urea Nitrogen 17 mg/dL (7-20) Creatinine 0.6 mg/dL (0.6-1.0) Estimated GFR (Cockcroft-Gault) 98.8 BUN/Creatinine Ratio 28 (6-20) H Glucose Level 117 mg/dL (70-99) H Calcium Level 9.6 mg/dL (8.5-10.1) Total Bilirubin 0.9 mg/dL (0.2-1.0) Aspartate Amino Transferase (AST) 20 U/L (15-37) Alanine Aminotransferase (ALT) 22 U/L (14-59) Alkaline Phosphatase 45 U/L (46-116) L Total Protein 7.6 g/dL (6.4-8.2) Albumin 3.8 g/dL (3.4-5.0) Albumin/Globulin Ratio 1.0 (1.0-1.7) EKG EKG [] Radiology/Procedures Radiology/Procedures [] Impressions: CT HEAD WO CONTRAST History: Headache and dizziness Comparison: August 02, 2016 Technique: Noncontrast CT imaging was performed of the head. Exposure: One or more of the following individualized dose reduction techniques were utilized for this examination: 1. Automated exposure control 2. Adjustment of the mA and/or kV according to patient size 3. Use of iterative reconstruction technique. Findings: No acute extra-axial or parenchymal hemorrhage is identified. There is no significant intra-axial mass effect, midline shift, or extra-axial fluid collection. There is again some calcification of the bilateral basal ganglia. There is again multifocal moderate to severe ill-defined low-density of the supratentorial parenchyma bilaterally. The fuentes-white differentiation of the major vascular territories is preserved. The ventricles, sulci, and cisterns are within normal limits in size and configuration. The mastoid air cells and the visualized paranasal sinuses are aerated. No acute calvarial abnormality is identified. Impression: 1. There is no evidence of acute intracranial hemorrhage. There is again multifocal low-density of the supratentorial parenchyma bilaterally, nonspecific findings more commonly due to chronic microvascular ischemic disease in a patient this age. Electronically signed by: Asia Sawant MD (12/17/2019 1:34 PM) [id number] DICTATED AND SIGNED BY: ASIA SAWANT MD DATE: 12/17/19 1334 CC: JEAN-CLAUDE CONDE DO; JOAN PICHARDO MD ~ Course & Med Decision Making Course & Med Decision Making Pertinent Labs and Imaging studies reviewed. (See chart for details) Her labs are unremarkable except for potassium of 3.3. Her head CT is negative for acute findings. The patient's urinalysis is negative for infection. I do not have a definitive reason for her dizziness. She does appear slightly dry clinically. We have given her fluids. If these symptoms return, she should seek further evaluation by her primary care physician. She is stable for discharge at this time. [] Dragon Disclaimer Dragon Disclaimer This electronic medical record was generated, in whole or in part, using a voice recognition dictation system. Departure Departure: Impression: Primary Impression: Dizziness Disposition: HOME, SELF-CARE Condition: STABLE Referrals: JOAN PICHARDO MD (PCP) Patient Instructions: Dizziness, [id number] Scripts Meclizine Hcl (MECLIZINE HCL) 12.5 Mg Tablet 1 TAB PO TID PRN for dizziness, #30 TAB 3 Refills Prov: JEAN-CLAUDE CONDE DO 12/17/19 JEAN-CLAUDE CONDE DO Dec 17, 2019 14:15
[2019-12-17 15:37] LABS: BACTERIA,URINE 0 /HPF (0-FEW); BILIRUBIN,URINE NEG (NEG); CLARITY,URINE CLEAR; COLOR,URINE YELLOW; GLUCOSE,URINE NEG (NEG); NITRITE,URINE NEG (NEG); RBC,URINE OCC /HPF (0-2); SQUAMOUS EPITHELIAL CELL,UR OCC /LPF; UROBILINOGEN,URINE 0.2 mg/dL (0.2 mg/dL); WBC,URINE OCC /HPF (0-4)
[2019-12-17] MEDS ORDERED: MECL12.573 PO (15:50)
== END 2019-12-17 16:00 | disposition home or self-care (01) ==
LOC: ER 13:04
DX: R42 Dizziness and giddiness (principal); R10.9 Unspecified abdominal pain; E11.9 Type 2 diabetes mellitus without complications; I10 Essential (primary) hypertension; E78.00 Pure hypercholesterolemia, unspecified
CPT/HCPCS: 36415; 70450; 80053; 81001; 85025; 96360; 99285-25; J7030

== ENCOUNTER → 2020-05-21 | Outpatient (CLI) | payer MEDICARE, OTHER ==
[~2020-05-21] MED LIST changes: +MECL12.573 PO; +MULT-445 PO; -MULT1TAB52 PO
--- NOTE | 2020-05-21 13:56 | RAD ---
CT HEAD INDICATION: Headache COMPARISON: 12/17/2019 Exposure: One or more of the following individualized dose reduction techniques were utilized for this examination: 1. Automated exposure control 2. Adjustment of the mA and/or kV according to patient size 3. Use of iterative reconstruction technique TECHNIQUE: 5 mm contiguous axial images were obtained from the skull base to the vertex in both bone and soft tissue algorithm. FINDINGS: Mild bilateral periventricular white matter hypodensities likely chronic small vessel ischemic disease. No evidence of acute intracranial hemorrhage. No extra-axial fluid collections. No mass effect or midline shift. Ventricular size is appropriate. Basal cisterns are patent. No fractures identified.Dotson-white differentiation is preserved.Globes and orbits are within normal limits. Paranasal sinuses and mastoid air cells are clear. IMPRESSION: No acute intracranial findings. Electronically signed by: Jackson Bernal MD (05/21/2020 1:53 PM) [id number]
--- NOTE | 2020-05-21 16:24 | RAD ---
Examination: CT ABDOMEN WO CONTRAST History: Atrophic gastritis with bleeding. Comparison/Correlation: 09/02/2019 CT abdomen and pelvis with contrast Findings: Axial images of the abdomen were obtained without contrast. Sagittal and coronal reformatted images were provided. There is a radiopaque density again seen within the left upper breast level. Correlate with history of intervention. It is not fully included for purposes of this exam. Visualized lung bases are clear. Liver, spleen, pancreas, and adrenal glands are normal. No radiopaque upper collecting system calculi. Kidneys are unremarkable. Appendix is normal. Stomach is normal. Moderate quantity of stool is present within the visualized colon. No inflammatory findings involving the upper abdomen. No abdominal aortic aneurysm. Bony structures are unremarkable for the patient's age. Impression: No suspicious process. Unremarkable CT abdomen without contrast. PQRS Compliance Statement: One or more of the following individualized dose reduction techniques were utilized for this examination: 1. Automated exposure control 2. Adjustment of the mA and/or kV according to patient size 3. Use of iterative reconstruction technique Electronically signed by: Roby Meng MD (05/21/2020 4:21 PM) [id number]
== END | disposition home or self-care (01) ==
LOC: CT 13:16
PROVIDERS: ATTEND Family Medicine
DX: K29.40 Chronic atrophic gastritis without bleeding (principal); R51 Headache
CPT/HCPCS: 70450; 74150

== ENCOUNTER 2020-10-13 15:10 | Emergency (ER) | payer MEDICARE, OTHER ==
[~2020-10-13] VITALS: Ht 152.4 cm; Wt 56.0 kg
[2020-10-13 15:11] VITALS: BP 175/90
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
== END 2020-10-13 16:25 | disposition home or self-care (01) ==
LOC: ER 15:10
DX: S16.1XXA Strain of muscle, fascia and tendon at neck level, initial encounter (principal); S70.02XA Contusion of left hip, initial encounter; S09.90XA Unspecified injury of head, initial encounter; E11.9 Type 2 diabetes mellitus without complications; E78.00 Pure hypercholesterolemia, unspecified; I10 Essential (primary) hypertension; V43.52XA Car driver injured in collision with other type car in traffic accident, initial encounter; Y93.I9 Activity, other involving external motion; Y92.488 Other paved roadways as the place of occurrence of the external cause; Y99.8 Other external cause status
CPT/HCPCS: 70450; 71045; 72125; 73502; 99285-25

== ENCOUNTER → 2020-10-28 | Outpatient (CLI) | payer MEDICARE, OTHER ==
[2020-10-13 15:11] VITALS: BP 175/90
--- NOTE | 2020-10-29 16:11 | RAD ---
BILATERAL SCREENING MAMMOGRAM, 3-D History: Routine screening. Comparison: 06/28/2019, 07/20/2018. Technique: MLO and CC digital tomosynthesis (3D) images obtained. Radiologist reviewed these images on dedicated workstation. Findings: Breast Tissue Density B : There are scattered areas of fibroglandular density. There are no dominant masses, suspicious microcalcifications, or architectural distortion. IMPRESSION: No mammographic evidence of malignancy. Recommend routine screening. BI-RADS category 1: Negative. The images were reviewed with computer-aided detection. Patient information is entered into reminder system with a target due date for the next screening mammogram. Mammography is the most sensitive method for finding small breast cancers, but it does not detect them all and is not a substitute for careful clinical examination. A negative mammogram does not negate a clinically suspicious finding and should not result in delay in biopsying a clinically suspicious abnormality. "Our facility is accredited by the [employer] Mammography Program." Electronically signed by: Roby Meng MD (10/29/2020 4:08 PM) [id number]
== END ==
LOC: MAMMO 11:24
PROVIDERS: ATTEND Family Medicine
DX: Z12.31 Encounter for screening mammogram for malignant neoplasm of breast (principal)
CPT/HCPCS: 77063; 77067

== ENCOUNTER 2021-05-25 21:49 | Emergency (ER) | payer MEDICARE, OTHER ==
[~2021-05-25] VITALS: Ht 152.4 cm; Wt 56.0 kg
[~2021-05-25 21:49] MED LIST changes: +LISI10TA16 PO; -LISI10TA2 PO; -MECL12.573 PO; +MECL12.582 PO
--- NOTE | 2021-05-25 22:07 | PHYS DOC ---
Past History Past Medical History: Arthritis, High Cholesterol Past Surgical History: Cholecystectomy Additional Past Surgical Histo: oophorectomy Smoking: Non-smoker Alcohol Use: None Drug Use: None Adult General Chief Complaint Chief Complaint: CHEST PAIN HPI HPI Patient is a 70-year-old female presents with a chief complaint of sharp, centralized chest pain that started 5 PM this evening, intermittent, 5 out of 10 at its worse with no radiation, no diaphoresis, no nausea or vomiting. States she has had this occasionally for the last couple of years and notes it does seem to get worse with anxiety which she has a lot of right now is her is going in for surgery tomorrow. Denies any recent traumas, travel, illnesses, fevers, abdominal pain, nausea, vomiting, dysuria, hematuria, blood in the stool or diarrhea. Denies any dyspnea on exertion, orthopnea, PND or edema. has been eating and drinking normally for her. [facility] has been making urine and stool normally for her. States she took 325 of aspirin this morning as she does every morning. Denies any alcohol, tobacco or drug use. Review of Systems Review of Systems Review of systems otherwise unremarkable except noted in HPI Allergies Allergies Allergies Coded Allergies Type Severity Reaction Last Updated Verified No Known Drug Allergies 10/13/20 No Physical Exam Physical Exam Constitutional: Well developed, well nourished, no acute distress, non-toxic appearance. [] HENT: Normocephalic, atraumatic, bilateral external ears normal, oropharynx moist, no oral exudates, nose normal. [] Eyes: conjunctiva normal, no discharge. [] Neck: Normal range of motion, no tenderness, supple, no stridor. [] Cardiovascular:Heart rate regular rhythm, no murmur [] Lungs & Thorax: Bilateral breath sounds clear to auscultation [] Abdomen: soft, no tenderness, no masses, no pulsatile masses. [] Skin: Warm, dry, no erythema, no rash. [] Back: No tenderness, no CVA tenderness. [] Extremities: No tenderness, no cyanosis, no clubbing, ROM intact, no edema. [] Neurologic: Alert and oriented X 3, no focal deficits noted. [] Psychologic: Affect normal, judgement normal, mood normal. [] EKG EKG Rate of 75, QRS of 80, QTc of 440, no STEMI [] Radiology/Procedures Radiology/Procedures []P chest. HISTORY: Chest pain AP view was taken of the chest. Lungs are clear. Heart is normal in size. There is no effusion. IMPRESSION: 1. No acute chest disease. Electronically signed by: Paulo Beckham MD (05/25/2021 10:20 PM) [facility] Heart Score C/O Chest Pain: Yes HEART Score for Chest Pain: HEART Score for Chest Pain Response (Comments) Value History Slighlty/Non-Suspicious 0 ECG Normal 0 Age > 65 2 Risk Factors 1 or 2 Risk Factors 1 Total 3 Risk Factors: Risk Factors: DM, Current or recent (<one month) smoker, HTN, HLP, family history of CAD, obesity. Risk Scores: Risk Factors: DM, Current or recent (<one month) smoker, HTN, HLP, family history of CAD, obesity. Course & Med Decision Making Course & Med Decision Making Patient is a 70-year-old female presents with chest pain Vital signs not concerning. Physical exam noted above. Patient took aspirin just before coming in. EKG noted above and normal. Troponin normal. Chest x- ray normal. D-dimer normal. Heart score 3. Laboratory analysis not concerning. Patient asymptomatic in the emergency department. Vital signs remained stable. Patient alert and oriented no acute distress. Discussed all findings with patient. Advised to follow-up in the morning with primary care physician to discuss ED visit and set up follow-up soon as possible. Gave return precautions to the ED. Patient grateful, verbalized understanding and agreed with plan of discharge. [] Dragon Disclaimer Dragon Disclaimer This electronic medical record was generated, in whole or in part, using a voice recognition dictation system. Departure Departure: Impression: Primary Impression: Chest pain Disposition: 01 HOME / SELF CARE / HOMELESS Condition: GOOD Referrals: JOAN PICHARDO MD (PCP) Patient Instructions: Chest Pain (Nonspecific) Additional Instructions: Thank you for coming into the emergency department tonight and allowing us to take care of you. Please read all the attached information very carefully to go back over what we discussed. Please continue take all your medications as prescribed. As we discussed, your work-up here in the emergency department was reassuring, however that does not mean that there is not something going on that we just did not slat pickler on here in the emergency department. For this reason, please call your primary care physician first thing in the morning to update on ED visit and set up a follow-up as soon as possible. Please come back to the ED with new or concerning symptoms as discussed. ELLIOT OLMEDO MD May 25, 2021 22:07
[2021-05-25 22:23] LABS: BASO # 0.1 x10^3/uL (0.0-0.2); BASO % 1 % (0-3); EOS # 0.1 x10^3/uL (0.0-0.7); EOS % 2 % (0-3); HEMATOCRIT 39.1 % (36.0-47.0); HEMOGLOBIN 13.3 g/dL (12.0-15.5); LYMPH # 3.4 x10^3/uL (1.0-4.8); LYMPH % 41 % (24-48); MEAN CORPUSCULAR HEMOGLOBIN 33 pg (25-35); MEAN CORPUSCULAR HGB CONC 34 g/dL (31-37); MEAN CORPUSCULAR VOLUME 97 fL (79-100); MONO # 0.6 x10^3/uL (0.0-1.1); MONO % 7 % (0-9); NEUT # 4.2 x10^3uL (1.8-7.7); NEUT % 50 % (31-73); PLATELET COUNT 270 x10^3/uL (140-400); RED BLOOD COUNT 4.04 x10^6/uL (3.50-5.40); RED CELL DISTRIBUTION WIDTH 12.8 % (11.5-14.5); WHITE BLOOD COUNT 8.5 x10^3/uL (4.0-11.0)
--- NOTE | 2021-05-25 22:23 | RAD ---
AP chest. HISTORY: Chest pain AP view was taken of the chest. Lungs are clear. Heart is normal in size. There is no effusion. IMPRESSION: 1. No acute chest disease. Electronically signed by: Paulo Beckham MD (05/25/2021 10:20 PM) [facility]
[2021-05-25 22:24] LABS: CALCIUM 8.4 mg/dL (8.5-10.1); CREATININE 0.6 mg/dL (0.6-1.0); GFR 98.5; POTASSIUM 4.1 mmol/L (3.5-5.1)
[2021-05-25] MEDS: ASPIRIN CHEWABLE 81 MG TABLET. PO ONE ×2 (22:26→22:27)
[2021-05-25 22:32] LABS: ALBUMIN 3.7 g/dL (3.4-5.0); ALBUMIN/GLOBULIN RATIO 1.1 (1.0-1.7); MAGNESIUM 2.2 mg/dL (1.8-2.4); TOTAL BILIRUBIN 0.6 mg/dL (0.2-1.0); TOTAL PROTEIN 7.2 g/dL (6.4-8.2)
[2021-05-25] MEDS ORDERED: MIDAZOLAM HCL PF 5 MG/5 ML VIAL. IV ONE (23:30)
[2021-05-26 00:30] VITALS: BP 142/77
--- NOTE | 2021-05-26 06:34 | EKG ---
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
--- NOTE | 2021-05-26 07:18 | EKG ---
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
== END 2021-05-26 00:33 | disposition home or self-care (01) ==
LOC: ER 21:49
DX: R07.89 Other chest pain (principal); M19.90 Unspecified osteoarthritis, unspecified site; E78.00 Pure hypercholesterolemia, unspecified
CPT/HCPCS: 36415; 71045; 80053; 83735; 84484; 85025; 85379; 93005; 96374; 99285

== ENCOUNTER → 2021-06-30 | Outpatient (CLI) | payer MEDICARE, OTHER ==
--- NOTE | 2021-06-30 16:47 | RAD ---
XR HAND_RIGHT 3 VIEWS History: Hand pain. Comparison: None. Technique: 3 views of the right hand. Findings: Decreased osseous mineralization. There is a minimally comminuted fracture of the tuft of the thumb d istal phalanx. No dislocation. Mild to moderate degenerative changes of the interphalangeal joints. Impression: 1. Minimally comminuted tuft fracture of the thumb distal phalanx. Electronically signed by: Chava Pacheco MD (06/30/2021 4:44 PM) [facility]
== END ==
LOC: RAD 15:53
PROVIDERS: ATTEND Family Medicine
DX: S60.011A Contusion of right thumb without damage to nail, initial encounter (principal); M19.041 Primary osteoarthritis, right hand; Z68.23 Body mass index [BMI] 23.0-23.9, adult; X58.XXXA Exposure to other specified factors, initial encounter; Y93.89 Activity, other specified; Y92.89 Other specified places as the place of occurrence of the external cause; Y99.8 Other external cause status
CPT/HCPCS: 73130

== ENCOUNTER 2021-11-09 20:03 | Emergency (ER) | payer MEDICARE, OTHER ==
[~2021-11-09] VITALS: Ht 152.4 cm; Wt 56.0 kg
[2021-11-09 20:05] VITALS: BP 142/77
--- NOTE | 2021-11-09 20:51 | PHYS DOC ---
Past History Past Medical History: Arthritis, High Cholesterol Past Surgical History: Cholecystectomy Additional Past Surgical Histo: oophorectomy Smoking: Non-smoker Alcohol Use: None Drug Use: None Adult General Chief Complaint Chief Complaint: EARACHE/EAR PAIN HPI HPI Patient is a 70-year-old female presenting for left ear issues. States her left ear feels full and at times she feels popping. This is an acute issue. She was seen at local urgent care she had associated tooth pain 4 days ago and was subsequently prescribed amoxicillin. She has been taking this with improvement in dental pain but ongoing left ear fullness has persisted prompting her to come in for evaluation. Otherwise denies any other concerning medical issues or immunocompromising conditions, no ear discharge or fever Review of Systems Review of Systems Fourteen body systems of review of systems have been reviewed. See HPI for pertinent positives and negative responses, other carrasco all other systems are negative, non-pertinent or non-contributory Allergies Allergies Allergies Coded Allergies Type Severity Reaction Last Updated Verified No Known Drug Allergies 10/13/20 No Physical Exam Physical Exam Constitutional: Well developed, well nourished, no acute distress, non-toxic appearance. HENT: Normocephalic, atraumatic, bilateral external ears normal, left middle ear with significant earwax present but no obvious infectious signs such as bulging of tympanic membrane/loss of cone of light/erythema or injection etc. Oropharynx moist, no oral exudates, nose normal. Poor dentition grossly with significant findings consistent with teeth grinding Eyes: PERRLA, EOMI, conjunctiva normal, no discharge. Neck: Normal range of motion, no tenderness, supple, no stridor. Cardiovascular: Heart rate regular per monitor Lungs & Thorax: No respiratory distress or accessory muscle use, bilateral chest rise Abdomen: Abdomen soft, non-tender, bowel sounds present in all quadrants, no guarding or rebound, nonacute abdomen. Skin: Warm, dry, no erythema, no rash. Back: No tenderness, no CVA tenderness. Extremities: No tenderness, no cyanosis, no clubbing, ROM intact, no edema. Neurologic: Alert and oriented X 3, grossly normal motor & sensory function, no focal deficits noted. Psychologic: Anxious affect and mood EKG EKG [] Radiology/Procedures Radiology/Procedures [] Heart Score C/O Chest Pain: No Risk Factors: Risk Factors: DM, Current or recent (<one month) smoker, HTN, HLP, family history of CAD, obesity. Risk Scores: Risk Factors: DM, Current or recent (<one month) smoker, HTN, HLP, family history of CAD, obesity. Course & Med Decision Making Course & Med Decision Making ABCs unremarkable HPI and comprehensive physical exam nonconcerning for any emergent or surgical issues No indication for further diagnostic ER workup, intervention, or hospitalization at this time Patient with earwax in left ear that is nonobstructive, advised OTC Debrox Patient has history of allergies and advised short-term use of antihistamine such as Zyrtec versus Claritin versus Eva etc. Discussed patient is already on antibiotics which would cover potentially infectious cause of patient's left ear issues that are likely fluid in inner ear in etiology, continued antibiotic use and other supportive care practices discussed at length with close outpatient follow-up advised Xin Disclaimer Xin Disclaimer This electronic medical record was generated, in whole or in part, using a voice recognition dictation system. Departure Departure: Impression: Primary Impression: Ear pain, left Disposition: 01 HOME / SELF CARE / HOMELESS Condition: STABLE Referrals: JOAN PICHARDO MD (PCP) Additional Instructions: As discussed prior to ER departure, your vitals and physical exam were nonconcerning for any emergent or surgical issues. A potentially infectious cause of your left ear issue was already being covered with amoxicillin, you should continue this antibiotic and take it to completion as scheduled. In addition, it is advised that you utilize hot warm showers, take a daily antihistamine such as loratadine/Claritin/Zyrtec/Eva, and use Debrox which is an eardrop which will help remove your earwax. You should contact your primary care physician in the morning to review ER visit today and need for close outpatient follow-up. It was a pleasure to take care of you and I wish you the best going forward CATHY TABOR DO Nov 09, 2021 20:51
== END 2021-11-09 21:05 | disposition home or self-care (01) ==
LOC: ER 20:03
DX: H92.02 Otalgia, left ear (principal); E78.00 Pure hypercholesterolemia, unspecified
CPT/HCPCS: 99282

== ENCOUNTER → 2022-01-28 | Outpatient (CLI) | payer MEDICARE, OTHER ==
[~2022-01-28] MED LIST changes: +IOHEXOL 240 MG/ML 50ML VIAL. ONE; +IOHEXOL 240 MG/ML 50ML VIAL. PO ONE; +IOHEXOL 300 MG/ML 75 ML VIAL. IV ONE
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
== END ==
LOC: CT 07:54
PROVIDERS: ATTEND Internal Medicine Gastroenterology
DX: J98.11 Atelectasis (principal); I70.0 Atherosclerosis of aorta; R14.0 Abdominal distension (gaseous); Z90.49 Acquired absence of other specified parts of digestive tract
CPT/HCPCS: 74177; Q9966; Q9967

== ENCOUNTER → 2022-04-05 | Outpatient (CLI) | payer MEDICARE, OTHER ==
[~2022-04-05] MED LIST changes: -IOHEXOL 240 MG/ML 50ML VIAL. ONE; -IOHEXOL 240 MG/ML 50ML VIAL. PO ONE; -IOHEXOL 300 MG/ML 75 ML VIAL. IV ONE
--- NOTE | 2022-04-05 11:04 | RAD ---
CLINICAL HISTORY: Abdominal pain COMPARISON: None available. TECHNIQUE: A small bowel follow-through study was performed. Oral contrast was ingested orally and mu ltiple radiographs were taken at time intervals until contrast reached the cecum.. FINDINGS: The welding inspector film demonstrates a nonobstructive bowel gas pattern. There are no abnormal calci fications projected in the region of the kidneys, bladder, or gallbladder. The serial films of barium traversing the small bowel to the cecum reveal a normal transit time. Con trast material is present in the colon after 90 minutes. Small bowel mucosal pattern and caliber is normal throughout. There is no evidence of obstruction o r filling defect. The terminal ileum appears normal. Cholecystectomy clips are seen. IMPRESSION: 1. Normal small bowel follow through exam. 2. Contrast is present in the colon at the 90 minute image. Electronically signed by: Bhupendra Hummel MD (04/05/2022 11:01 AM) [id number]
--- NOTE | 2022-04-05 15:12 | RAD ---
EXAM: ULTRASOUND ABDOMINAL AORTA. CLINICAL HISTORY: Reason: ATHLEROSCLEROSIS/ RULE OUT STENOSIS / Spl. Instructions: / History: COMPARISON: None available. TECHNIQUE: The abdominal aorta was examined from the diaphragm to the proximal common iliac arteries. FINDINGS: The proximal abdominal aorta measures 1.6 cm in AP dimension. The mid abdominal aorta measures 1.4 cm in AP dimension. The distal abdominal aorta measures 1.3 cm in AP dimension. The right common iliac artery measures 8 mm x 6 mm in diameter. The left common iliac artery measure s 13 mm x 11 mm in diameter. There is no evidence of stenosis on Doppler. IMPRESSION: Negative examination. Electronically signed by: Patrick Chew III, MD (04/05/2022 3:09 PM) [facility]
== END ==
LOC: RAD 08:07
PROVIDERS: ATTEND Internal Medicine Gastroenterology
DX: I70.0 Atherosclerosis of aorta (principal); R93.89 Abnormal findings on diagnostic imaging of other specified body structures; Z90.49 Acquired absence of other specified parts of digestive tract
CPT/HCPCS: 74250; 76770